=== PATIENT | male | born 1960 | race Caucasian/White ===

== ENCOUNTER 2024-09-04 16:09 | Emergency (ER) | payer OTHER, SELFPAY ==
[2024-09-04 16:23] VITALS: BP 158/78; PULSE 75; TEMP 36.8; O2SAT 96; BMI 30.4
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
[2024-09-04] MEDS: HYDROCODONE/ACET 5-325 MG TABLET 1 TAB PO (18:21)
[2024-09-04] MEDS: METHOCARBAMOL 500 MG TABLET PO (18:21)
== END 2024-09-04 18:30 | disposition home or self-care (01) ==
PROVIDERS: Emergency Provider Student in an Organized Health Care Education/Training Program; PCP Nurse Practitioner Family
DX: S13.4XXA Sprain of ligaments of cervical spine, initial encounter (principal); V49.59XA Passenger injured in collision with other motor vehicles in traffic accident, initial encounter
CPT/HCPCS: 70450; 72125; 99284

== ENCOUNTER 2024-12-29 17:13 | Observation (INO) | payer OTHER, SELFPAY ==
[2024-12-29] VITALS (18 sets, daily range): BP systolic 109–146; BP diastolic 54–74; PULSE 70–106; TEMP 36.8–37.1; O2SAT 92–97; BMI 29.6; BMI 32.0
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
--- NOTE | 2024-12-29 17:32 | XR_ITS ---
[place] [address] Patient Name: BISHNU ROLON MRN: [id number] date: 1960 Sex: M Assigned Patient Location: ER Current Patient Location: ER Accession/Order Number: [id number] Exam Date: 12/29/2024 17:56 Report Date: 12/29/2024 17:56 At the request of: ZEYAD DE LA TORRE MD Procedure: XR chest 1V Plain film chest Single view HISTORY: Shortness of breath COMPARISON: None FINDINGS: SUPPORT DEVICES: None POSTSURGICAL CHANGES: None HEART: Within normal limits PULMONARY KORIN: Within normal limits MEDIASTINUM: Unremarkable LUNGS AND PLEURA: No acute lung process, pleural effusion or pneumothorax identified. BONY STRUCTURES: Intact ADDITIONAL FINDINGS None XR/XR chest 1V IMPRESSION: No acute process. Impression dictated by: Madhav Belcher M.D. 12/29/2024 5:56 PM Dictation Location: [place] [address] Electronically authenticated by: [id number] Y Date: 12/29/2024 17:56
--- NOTE | 2024-12-29 17:32 | ECG_ITS ---
The [facility] Test Date: 2024-12-29 Pat Name: BISHNU ROLON Department: Room: - Gender: Male Online Marketing Manager: : 1960 Requested By: 1030 Order Number: [id number] Reading MD: ÓSCAR ALMEIDA M.D. Measurements Intervals [place] Rate: 103 P: 45 MA: 134 QRS: -48 QRSD: 88 T: 1 QT: 330 QTc: 389 Interpretive Statements 1120 Sinus tachycardia 1570 with occasional ventricular premature complexes 2630 Left anterior fascicular block 4068 Nonspecific Twave abnormality 5222 Moderate voltage criteria for LVH, may be normal variant 8003 Consistent with pulmonary disease 8102 Low QRS voltage in chest leads 9150 abnormal ECG No previous ECG available for comparison Electronically Signed On 12-29-2024 18:11:07 EDT by ÓSCAR ALMEIDA M.D.
--- NOTE | 2024-12-29 17:34 | ED.GENADUL1 ---
HPI HPI - General Adult General Chief complaint: Shortness of Breath/Dyspnea Stated complaint: Shortness of Breath Time Seen by Provider: 12/29/24 17:17 Mode of arrival: walk-in History of Present Illness HPI narrative: 64-year-old male presents for heaviness on his shoulders and feeling short of breath. It started about 2 hours ago. This morning he was working outside for about 3 hours helping his neighbor build a deck. 2 hours ago's when the symptoms started and he felt some cramping in his bilateral chest. No cough or fever. He has never had the symptoms before and was concerned so he came in. Related Data Home Medications ?Medication ?Instructions ?Recorded ?Confirmed allopurinol 300 mg tablet mg 12/29/24 lisinopril 40 mg tablet mg 12/29/24 Allergies Allergy/AdvReac Type Severity Reaction Status Date / Time No Known Drug Allergies Allergy Verified 12/29/24 17:17 Opioid HPI Opioid Management Most Recent Opioid Data: Last Pain Scale 8 09/04/24, 18:27 Review of Systems ROS Narrative A ten point review of systems is negative except as noted above. PFSH PFSH Social History Little interest or pleasure in doing things: not at all Feeling down, depressed, or hopeless: not at all Exam Narrative Exam Narrative: Nurses note and vital signs reviewed and patient is not hypoxic. General: The patient appears well and in no apparent distress. Patient is resting comfortably on cart. Skin: Warm, dry, no pallor noted. There is no rash noted. Head: Normocephalic, atraumatic Eye: Normal conjunctiva, no drainage Ears, Nose, Mouth, and Throat: oral mucosa is moist. Nares patent. Cardiovascular: Regular Rate and Rhythm Respiratory: Patient is in no distress, no accessory muscle use, lungs are clear to auscultation, no wheezing, rales or rhonchi Back: non-tender GI: Soft and nontender Musculoskeletal: The patient has no evidence of calf tenderness, no pitting edema, symmetrical pulses noted bilaterally Neurological: A&O, normal speech Psychiatric: Cooperative Constitutional Vital Signs, click to edit/add: Last Vital Signs Temp 98.8 F 12/29/24 17:17 Pulse 104 H 12/29/24 17:17 Resp 18 12/29/24 17:17 BP 117/71 12/29/24 17:17 Pulse Ox 94 L 12/29/24 17:38 O2 Del Method Room Air 12/29/24 17:38 Course Vital Signs Vital signs: Vital Signs Temperature 98.8 F 12/29/24 17:17 Pulse Rate 104 H 12/29/24 17:17 Respiratory Rate 18 12/29/24 17:17 Blood Pressure 117/71 12/29/24 17:17 Pulse Oximetry 94 L 12/29/24 17:17 Oxygen Delivery Method Room Air 12/29/24 17:17 Temperature 98.8 F 12/29/24 17:17 Pulse Rate 104 H 12/29/24 17:17 Respiratory Rate 18 12/29/24 17:17 Blood Pressure 117/71 12/29/24 17:17 Pulse Oximetry 94 L 12/29/24 17:38 Oxygen Delivery Method Room Air 12/29/24 17:38 Medical Decision Making MDM Narrative Medical decision making narrative: Initial troponin is negative. Repeat troponin is pending and the patient is signed out to Dr. Interiano at change of shift. Differential Diagnosis Differential Diagnosis: STEMI, NSTEMI, pneumothorax, atypical chest Lab Data Lab results reviewed: Yes I reviewed the patient's lab results Labs: Lab Results 12/29/24 Range/Units 17:33 WBC 14.8 H (4.0-11.0) 10^3/uL RBC 4.40 L (4.70-6.10) 10^6/uL Hgb 12.7 L (14.0-18.0) g/dL Hct 37.9 L (42.0-54.0) % MCV 86.1 (80.0-94.0) fL MCH 28.9 (25.9-34.0) pg MCHC 33.5 (29.9-35.2) g/dL RDW 13.6 (11.0-15.0) % Plt Count 272 (150-450) 10^3/uL MPV 10.9 (9.5-13.5) fL Neut % (Auto) 76.2 H (43.0-75.0) % Lymph % (Auto) 16.1 L (20.5-60.0) % [place] % (Auto) 6.2 (1.7-12.0) % Eos % (Auto) 0.7 L (0.9-7.0) % Baso % (Auto) 0.3 (0.2-2.0) % Neut # (Auto) 11.3 H (1.4-6.5) 10^3/uL Lymph # (Auto) 2.4 (1.2-3.8) 10^3/uL [place] # (Auto) 0.9 H (0.3-0.8) 10^3/uL Eos # (Auto) 0.1 (0.0-0.7) 10^3/uL Baso # (Auto) 0.0 (0.0-0.1) 10^3/uL Abs Immat Gran (auto) 0.07 H (0.00-0.03) 10^3/uL Imm/Tot Granulo (auto) 0.5 (0.0-0.5) % Sodium 142 (136-145) mmol/L Potassium 3.7 (3.5-5.1) mmol/L Chloride 104 (98-107) mmol/L Carbon Dioxide 26.1 (21.0-32.0) mmol/L Anion Gap 15.6 BUN 15.0 (7.0-18.0) mg/dL Creatinine 1.46 H (0.70-1.30) mg/dL Est GFR ( Amer) 59 L (>=60 mL/min/1.73m^2) Est GFR (Non-Af Amer) 49 L (>=60 mL/min/1.73m^2) BUN/Creatinine Ratio 10.3 Glucose 149 H (74-106) mg/dL Calcium 9.0 (8.5-10.1) mg/dL Troponin I High Sens 6.1 (4.0-76.1) pg/mL Imaging Data Chest x-ray: Radiologist's impression: ITS Impressions Chest X-Ray 12/29/24 17:32 IMPRESSION: No acute process. Impression dictated by: Madhav Belcher M.D. 12/29/2024 5:56 PM Dictation Location: [facility] Electronically authenticated by: [id number] Y Date: 12/29/2024 17:56 ECG Data Attestation: I personally reviewed and interpreted this ECG as follows: (EKG on my interpretation shows sinus rhythm with rate of 103 and 2 PVCs) Discharge Plan Discharge Patient Disposition: Still a Patient
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
[2024-12-29 17:50] LABS: Basophils Percent Auto 0.3 % (0.2-2.0); Eosinophils Absolute Auto 0.1 10^3/uL (0.0-0.7); Eosinophils Percent Auto 0.7 % (0.9-7.0); Hematocrit 37.9 % (42.0-54.0); Hemoglobin 12.7 g/dL (14.0-18.0); Immature Granulocytes Abs Auto 0.07 10^3/uL (0.00-0.03); Immature Granulocytes Pct Auto 0.5 % (0.0-0.5); Lymphocytes Absolute Auto 2.4 10^3/uL (1.2-3.8); Lymphocytes Percent Auto 16.1 % (20.5-60.0); Mean Corpuscular HGB Conc 33.5 g/dL (29.9-35.2); Mean Corpuscular Hemoglobin 28.9 pg (25.9-34.0); Mean Corpuscular Volume 86.1 fL (80.0-94.0); Mean Platelet Volume 10.9 fL (9.5-13.5); Monocytes Absolute Auto 0.9 10^3/uL (0.3-0.8); Monocytes Percent Auto 6.2 % (1.7-12.0); Neutrophils Absolute Auto 11.3 10^3/uL (1.4-6.5); Neutrophils Percent Auto 76.2 % (43.0-75.0); Platelet Count 272 10^3/uL (150-450); Red Cell Distribution Width 13.6 % (11.0-15.0); White Blood Count 14.8 10^3/uL (4.0-11.0)
[2024-12-29 18:14] LABS: Anion Gap 15.6; BUN Creatinine Ratio 10.3; Carbon Dioxide 26.1 mmol/L (21.0-32.0); Chloride 104 mmol/L (98-107); Estimated GFR (African America 59 (>=60 mL/min/1.73m^2); Estimated GFR (Non-African Ame 49 (>=60 mL/min/1.73m^2); Glucose 149 mg/dL (74-106); Potassium 3.7 mmol/L (3.5-5.1); Sodium 142 mmol/L (136-145); Troponin I High Sensitivity 6.1 pg/mL (4.0-76.1)
[2024-12-29 18:55] LABS: Bilirubin Urine NEGATIVE (NEGATIVE); Blood Urine SMALL (NEGATIVE); Glucose Urine UA NEGATIVE (NEGATIVE); Ketones Urine TRACE mg/dL (NEGATIVE); Leukocyte Esterase Urine LARGE (NEGATIVE); Nitrite Urine POSITIVE (NEGATIVE); Protein Urine 100 mg/dL (NEG/TRACE); Urobilinogen Urine 0.2 EU/dL (0.2-1.0)
[2024-12-29 19:05] LABS: Troponin I High Sensitivity 5.8 pg/mL (4.0-76.1)
[2024-12-29 19:10] LABS: Bacteria Urine LARGE #/HPF (NONE SEEN); Clarity Urine SLIGHTLY CLOUDY (CLEAR); Color Urine DK YELLOW (YELLOW); WBC Urine 75-100 #/HPF (NONE SEEN)
[2024-12-29 19:11] LABS: Crystals Seen? None Seen #/HPF (None Seen); Mucus Urine TRACE (NONE SEEN); Squamous Epithelial Cell Urine RARE #/LPF (NONE/RARE)
[2024-12-29 19:12] LABS: Cast Seen? SEEN #/LPF (NONE SEEN); Hyaline Casts Urine FEW; Urine Culture Indicated YES-FRMC
--- NOTE | 2024-12-29 19:12 | ED_ITS ---
HPI - SOB/Dyspnea General Chief Complaint: Shortness of Breath/Dyspnea Stated Complaint: Shortness of Breath Time Seen by Provider: 12/29/24 17:17 Mode of arrival: walk-in History of Present Illness HPI Narrative: This 64-year-old male with signed out to me at shift change pending repeat troponin and reevaluation. The patient was seen and evaluated. He is resting comfortably. He has no complaints at this time. He states that earlier today after working with his neighbor to help him build a deck he was walking back to his house and felt pain across his shoulders and felt like he was carrying 250 pound buckets of water. He states that he felt weak and like everything was heavy. He has been having intermittent muscle cramps since that time. He denies any daniel chest pain or shortness of breath. He has never smoked cigarettes. He does not have a history of any heart disease. He does take medication for blood pressure. He states that he drinks plenty of water throughout the day and drink 3-4 bottles of water today while working outside. Approximately 8 days ago he did have some dysuria and has been increasing his water intake since then. He does not any have any abdominal pain or flank pain. He has not had any fevers or chills. I did review his EKG and labs. His white count is elevated at 14.8 with a stable hemoglobin.. Electrolytes are normal with an elevated creatinine at 1.46.. Urine is positive for nitrites and 75-100 white blood cells per high-power field. He will be given IV fluids and IV Rocephin pending culture of his urine. His repeat troponin is normal. D-dimer is normal. Lactic acid is normal. 2 sets of blood cultures are pending. The patient does not show any signs of toxicity or sepsis at this time but due to the elevated white count, generalized weakness and urinary tract infection the blood cultures and lactic acid were ordered. He was given IV Cipro in addition to the IV Rocephin pending culture of his urine. He is otherwise stable. He denies any abdominal pain or back pain. The case was discussed with the hospitalist and he is excepted for admission MedSurg, observation status Related Data Home Medications ?Medication ?Instructions ?Recorded ?Confirmed allopurinol 300 mg tablet mg 12/29/24 lisinopril 40 mg tablet mg 12/29/24 Allergies Allergy/AdvReac Type Severity Reaction Status Date / Time No Known Drug Allergies Allergy Verified 12/29/24 17:17 PFSH PFS Social History Little interest or pleasure in doing things: not at all Feeling down, depressed, or hopeless: not at all Exam Constitutional Vital Signs, click to edit/add: Last Vital Signs Temp 98.8 F 12/29/24 17:17 Pulse 87 12/29/24 18:50 Resp 16 12/29/24 18:50 BP 112/61 12/29/24 18:45 Pulse Ox 94 L 12/29/24 18:50 O2 Del Method Room Air 12/29/24 17:38 Course Vital Signs Vital signs: Vital Signs Temperature 98.8 F 12/29/24 17:17 Pulse Rate 104 H 12/29/24 17:17 Respiratory Rate 18 12/29/24 17:17 Blood Pressure 117/71 12/29/24 17:17 Pulse Oximetry 94 L 12/29/24 17:17 Oxygen Delivery Method Room Air 12/29/24 17:17 Temperature 98.8 F 12/29/24 17:17 Pulse Rate 87 12/29/24 18:50 Respiratory Rate 16 12/29/24 18:50 Blood Pressure 112/61 12/29/24 18:45 Pulse Oximetry 94 L 12/29/24 18:50 Oxygen Delivery Method Room Air 12/29/24 17:38 MDM - SOB/Dyspnea Lab Data Labs: Lab Results 12/29/24 12/29/24 12/29/24 Range/Units 17:33 17:35 18:30 WBC 14.8 H (4.0-11.0) 10^3/uL RBC 4.40 L (4.70-6.10) 10^6/uL Hgb 12.7 L (14.0-18.0) g/dL Hct 37.9 L (42.0-54.0) % MCV 86.1 (80.0-94.0) fL MCH 28.9 (25.9-34.0) pg MCHC 33.5 (29.9-35.2) g/dL RDW 13.6 (11.0-15.0) % Plt Count 272 (150-450) 10^3/uL MPV 10.9 (9.5-13.5) fL Neut % (Auto) 76.2 H (43.0-75.0) % Lymph % (Auto) 16.1 L (20.5-60.0) % Atkinson % (Auto) 6.2 (1.7-12.0) % Eos % (Auto) 0.7 L (0.9-7.0) % Baso % (Auto) 0.3 (0.2-2.0) % Neut # (Auto) 11.3 H (1.4-6.5) 10^3/uL Lymph # (Auto) 2.4 (1.2-3.8) 10^3/uL Atkinson # (Auto) 0.9 H (0.3-0.8) 10^3/uL Eos # (Auto) 0.1 (0.0-0.7) 10^3/uL Baso # (Auto) 0.0 (0.0-0.1) 10^3/uL Abs Immat Gran (auto) 0.07 H (0.00-0.03) 10^3/uL Imm/Tot Granulo (auto) 0.5 (0.0-0.5) % D-Dimer 0.42 (<=0.59) mg/L FEU Sodium 142 (136-145) mmol/L Potassium 3.7 (3.5-5.1) mmol/L Chloride 104 (98-107) mmol/L Carbon Dioxide 26.1 (21.0-32.0) mmol/L Anion Gap 15.6 BUN 15.0 (7.0-18.0) mg/dL Creatinine 1.46 H (0.70-1.30) mg/dL Est GFR ( Amer) 59 L (>=60 mL/min/1.73m^2) Est GFR (Non-Af Amer) 49 L (>=60 mL/min/1.73m^2) BUN/Creatinine Ratio 10.3 Glucose 149 H (74-106) mg/dL Lactate (0.4-2.0) mmol/L Calcium 9.0 (8.5-10.1) mg/dL Troponin I High Sens 6.1 (4.0-76.1) pg/mL Urine Color Dk yellow (YELLOW) Urine Clarity Slightly cloudy A (CLEAR) Urine pH 6.0 (5.0-9.0) Ur Specific [place] 1.020 (1.005-1.025) Urine Protein 100 A (NEG/TRACE) mg/dL Urine Glucose (UA) Negative (NEGATIVE) mg/dL Urine Ketones Trace A (NEGATIVE) mg/dL Urine Occult Blood Small A (NEGATIVE) Urine Nitrite Positive A (NEGATIVE) Urine Bilirubin Negative (NEGATIVE) Urine Urobilinogen 0.2 (0.2-1.0) EU/dL Ur Leukocyte Esterase Large A (NEGATIVE) Urine RBC 2-5 A (0-2) #/HPF Urine WBC 75-100 A (NONE SEEN) #/HPF Ur Squamous Epith Cells Rare (NONE/RARE) #/LPF Urine Crystals None seen (None Seen) #/HPF Urine Bacteria Large A (NONE SEEN) #/HPF Urine Casts Seen A (NONE SEEN) #/LPF Hyaline Casts Few Urine Mucus Trace A (NONE SEEN) Ur Culture Indicated? [place] [place] 12/29/24 Range/Units 18:42 19:25 WBC (4.0-11.0) 10^3/uL RBC (4.70-6.10) 10^6/uL Hgb (14.0-18.0) g/dL Hct (42.0-54.0) % MCV (80.0-94.0) fL MCH (25.9-34.0) pg MCHC (29.9-35.2) g/dL RDW (11.0-15.0) % Plt Count (150-450) 10^3/uL MPV (9.5-13.5) fL Neut % (Auto) (43.0-75.0) % Lymph % (Auto) (20.5-60.0) % Atkinson % (Auto) (1.7-12.0) % Eos % (Auto) (0.9-7.0) % Baso % (Auto) (0.2-2.0) % Neut # (Auto) (1.4-6.5) 10^3/uL Lymph # (Auto) (1.2-3.8) 10^3/uL Atkinson # (Auto) (0.3-0.8) 10^3/uL Eos # (Auto) (0.0-0.7) 10^3/uL Baso # (Auto) (0.0-0.1) 10^3/uL Abs Immat Gran (auto) (0.00-0.03) 10^3/uL Imm/Tot Granulo (auto) (0.0-0.5) % D-Dimer (<=0.59) mg/L FEU Sodium (136-145) mmol/L Potassium (3.5-5.1) mmol/L Chloride (98-107) mmol/L Carbon Dioxide (21.0-32.0) mmol/L Anion Gap BUN (7.0-18.0) mg/dL Creatinine (0.70-1.30) mg/dL Est GFR ( Amer) (>=60 mL/min/1.73m^2) Est GFR (Non-Af Amer) (>=60 mL/min/1.73m^2) BUN/Creatinine Ratio Glucose (74-106) mg/dL Lactate 0.9 (0.4-2.0) mmol/L Calcium (8.5-10.1) mg/dL Troponin I High Sens 5.8 (4.0-76.1) pg/mL Urine Color (YELLOW) Urine Clarity (CLEAR) Urine pH (5.0-9.0) Ur Specific [place] (1.005-1.025) Urine Protein (NEG/TRACE) mg/dL Urine Glucose (UA) (NEGATIVE) mg/dL Urine Ketones (NEGATIVE) mg/dL Urine Occult Blood (NEGATIVE) Urine Nitrite (NEGATIVE) Urine Bilirubin (NEGATIVE) Urine Urobilinogen (0.2-1.0) EU/dL Ur Leukocyte Esterase (NEGATIVE) Urine RBC (0-2) #/HPF Urine WBC (NONE SEEN) #/HPF Ur Squamous Epith Cells (NONE/RARE) #/LPF Urine Crystals (None Seen) #/HPF Urine Bacteria (NONE SEEN) #/HPF Urine Casts (NONE SEEN) #/LPF Hyaline Casts Urine Mucus (NONE SEEN) Ur Culture Indicated? Discharge Plan Discharge Chief Complaint: Shortness of Breath/Dyspnea Clinical Impression: Chest pain, Acute UTI (urinary tract infection), Acute kidney injury Patient Disposition: Admitted as Observation Time of Disposition Decision: 20:02 Condition: Good
[2024-12-29 19:20] LABS: D Dimer 0.42 mg/L FEU (<=0.59)
[2024-12-29] MEDS: 0.9 % SODIUM CHLORIDE 1,000 ML 1000 ML IV (19:39)
[2024-12-29] MEDS: CEFTRIAXONE 1,000 MG in 0.9 % SODIUM CHLORIDE 50 ML 100 MG IV (19:39)
[2024-12-29 19:47] LABS: Lactate/Lactic Acid 0.9 mmol/L (0.4-2.0)
[2024-12-29] MEDS: CIPROFLOXACIN IN 5 % DEXTROSE 400 MG/200 ML PREMIX 200 MG IV (20:09)
[2024-12-29 21:26] LABS: C Reactive Protein 6.46 mg/dL (<=0.50)
--- OUTSIDE RECORDS SUMMARY | 2024-12-29 21:34 | XMS_ITS | CCD ---
Author Organization 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 Name Role Phone ZEYAD DE LA TORRE Admitting Unavailable ZEYAD DE LA TORRE Attending Unavailable CAITLIN ., SUMAN Consulting Unavailable JEEVAN SALAS Consulting Unavailable PAY ., DR PAUL Consulting Unavailable PAY ., DR PAUL Admitting Unavailable PAY ., DR PAUL Attending Unavailable DONNA DOMINGUEZ Admitting Unavailable DONNA DOMINGUEZ Attending Unavailable [facility] Primary Care Unavailable DONNA DOMINGUEZ [...] 09-18-2022 Chronic Other aftercare (1 source) 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 Dayanara Mckeon Basophils/100 WBC (Bld) 0.2 % Normal 0.2-2.0 [facility] Comment on above: Performed By: #### C BC #### [facility] [address] [place] [address] Dr. Dayanara Mckeon EO # 0.0 103/ul Normal 0.0-0.7 [facility] Comment on above: Performed By: #### C BC #### [facility] [address] [place] [address] Dr. Dayanara Mckeon Eosinophils/100 WBC (Bld) 0.2 % Critically low 0.9-7.0 [facility] Comment on above: Performed By: #### C BC #### [facility] [address] [place] [address] Dr. Dayanara Mckeon Erythrocyte distribution width (RBC) [Ratio] 13.2 % Normal 11.0-15.0 [facility] Comment on above: Performed By: #### C BC #### [facility] [address] [place] [address] Dr. Dayanara Mckeon Hematocrit (Bld) [Volume fraction] 42.9 % Normal 42.0-54.0 [facility] Comment on above: Performed By: #### C BC #### [facility] [address] [place] [address] Dr. Dayanara Mckeon Hemoglobin (Bld) [Mass/Vol] 14.8 g/dL Normal 14.0-18.0 [facility] Comment on above: Performed By: #### C BC #### [facility] [address] [place] [address] Dr. Dayanara Mckeon IG # 0.03 10e3/ul Normal 0.00-0.03 [facility] Comment on above: Performed By: #### C BC #### [facility] [address] [place] [address] Dr. Dayanara Mckeon IG % 0.3 % Normal 0.0-0.5 [facility] Comment on above: Performed By: #### C BC #### [facility] [address] [place] [address] Dr. Dayanara Mckeon LYMPH # 1.0 103/ul Critically low 1.2-3.8 [facility] Comment on above: Performed By: #### C BC #### [facility] [address] [place] [address] Dr. Dayanara Mckeon Lymphocytes/100 WBC (Bld) 10.4 % Critically low 20.5-60.0 [facility] Comment on above: Performed By: #### C BC #### [facility] [address] [place] [address] Dr. Dayanara Mckeon MANUAL DIFF REQ NO Normal [facility] Comment on above: Performed By: #### C BC #### [facility] [address] [place] [address] Dr. Dayanara Mckeon MCH (RBC) [Entitic mass] 29.7 pg Normal 25.9-34.0 [facility] Comment on above: Performed By: #### C BC #### [facility] [address] [place] [address] Dr. Dayanara Mckeon MCHC (RBC) [Mass/Vol] 34.5 g/dL Normal 29.9-35.2 [facility] Comment on above: Performed By: #### C BC #### [facility] [address] [place] [address] Dr. Dayanara Mckeon MCV (RBC) [Entitic vol] 86.0 fL Normal 80.0-94.0 [facility] Comment on above: Performed By: #### C BC #### [facility] [address] [place] [address] Dr. Dayanara Mckeon MONO # 0.2 103/ul Critically low 0.3-0.8 [facility] Comment on above: Performed By: #### C BC #### [facility] [address] [place] [address] Dr. Dayanara Mckeon Monocytes/100 WBC (Bld) 2.4 % Normal 1.7-12.0 [facility] Comment on above: Performed By: #### C BC #### [facility] [address] [place] [address] Dr. Dayanara Mckeon NEUT # 8.3 103/ul Critically high 1.4-6.5 [facility] Comment on above: Performed By: #### C BC #### [facility] [address] [place] [address] Dr. Dayanara Mckeon Neutrophils/100 WBC (Bld) 86.5 % Critically high 43.0-75.0 [facility] Comment on above: Performed By: #### C BC #### [facility] [address] [place] [address] Dr. Dayanara Mckeon Platelet mean volume (Bld) [Entitic vol] 11.0 fL Normal 9.5-13.5 [facility] Comment on above: Performed By: #### C BC #### [facility] [address] [place] [address] Dr. Dayanara Mckeon PLT 237 103/ul Normal 150-450 [facility] Comment on above: Performed By: #### C BC #### [facility] [address] [place] [address] Dr. Dayanara Mckeon RBC 4.99 106/ul Normal 4.70-6.10 [facility] Comment on above: Performed By: #### C BC #### [facility] [address] [place] [address] Dr. Dayanara Mckeon WBC 9.6 103/ul Normal 4.0-11.0 [facility] Comment on above: Performed By: #### C BC #### [facility] [address] [address] [address] HEAD WO CONon [...] CYNTHIA RESENDIZ Date: 2022-09-14 22:36 Normal [facility] PROF CHEM 8 (BAS METB)on Anion gap [Moles/Vol] 11.3 mmol/L Normal [facility] Comment on above: Performed By: #### B MP #### [facility] [address] [address] [address] Dayanara Mckeon Calcium [Mass/Vol] 9.0 mg/dL Normal 8.5-10.1 [facility] Comment on above: Performed By: #### B MP #### [facility] [address] [address] [address] Dayanara Mckeon Chloride [Moles/Vol] 103 mmol/L Normal 98-107 [facility] Comment on above: Performed By: #### B MP #### [facility] [address] [address] [address] Dayanara Mckeon CO2 [Moles/Vol] 28.8 mmol/L Normal 21.0-32.0 [facility] Comment on above: Performed By: #### B MP #### [facility] [address] [address] [address] Dayanara Mckeon Creatinine [Mass/Vol] 0.79 mg/dL Normal 0.70-1.30 [facility] Comment on above: Performed By: #### B MP #### [facility] [address] [address] [address] Dayanara Mckeon EGFR-AF INDONESIAN >60 Normal >=60 [facility] Comment on above: Performed By: #### B MP #### [facility] [address] [place] [address] Dr. Dayanara Mckeon EGFR-NON AF INDONESIAN >60 Normal >=60 [facility] Comment on above: Performed By: #### B MP #### [facility] [address] [place] [address] Dr. Dayanara Mckeon Glucose [Mass/Vol] 129 mg/dL Critically high 74-106 [facility] Comment on above: Performed By: #### B MP #### [facility] [address] [place] [address] Dr. Dayanara Mckeon Potassium [Moles/Vol] 4.1 mmol/L Normal 3.5-5.1 [facility] Comment on above: Performed By: #### B MP #### [facility] [address] [address] [address] Dayanara Mckeon Sodium [Moles/Vol] 139 mmol/L Normal 136-145 [facility] Comment on above: Performed By: #### B MP #### [facility] [address] [address] [address] Dayanara Mckeon Urea nitrogen [Mass/Vol] 12.0 mg/dL Normal 7.0-18.0 [facility] Comment on above: Performed By: #### B MP #### [facility] [address] [place] [address] Dr. Dayanara Mckeon Urea nitrogen/Creatinin e [Mass ratio] 15.2 mg/mg Normal [facility] Comment on above: Performed By: #### B MP #### [facility] [address] [address] [address] Dayanara Mckeon Covid-19 PCR ([facility])on SARS-CoV-2 (COVID-19) RNA COLTON+probe Ql (Unsp spec) Not detected Normal NOT DETECTED [facility] Comment on above: Result Comment: When [...] for this test is supported by the [place] of Health and Human Service's declaration that [...] used). Performed By: #### C VDTBH #### [facility] [address] [place] [address] Dr. Dayanara Mckeon INFLUENZA A AND B AGon 07-02 [facility] SEE BELOW Normal [facility] Comment on above: Result Comment: Nega tive for Flu A protein angiten. Infection due to Flu A cannot be ruled out. Flu A angiten in the sample may be below the detection limit of the test. Performed By: #### I NFLUAB #### [facility] [address] [place] [address] Dr. Dayanara Mckeon INFLUBNEG SEE BELOW Normal [facility] Comment on above: Result Comment: Nega tive for Flu B protein antigen. Infection due to Flu B cannot be ruled out. Flu B antigen in the sample may be below the detection limit of the test. Performed By: #### I NFLUAB #### [facility] [address] [address] [address] Dayanara Mckeon INFLUENZA A AG Negative Normal NEGATIVE SEE COMMENT [facility] Comment on above: Performed By: #### I NFLUAB #### [facility] [address] [address] [address] Dayanara Mckeon INFLUENZA B AG Negative Normal NEGATIVE SEE COMMENT [facility] Comment on above: Performed By: #### I NFLUAB #### [facility] [address] [address] [address] Dayanara Mckeon INTERNAL CONTROLS Within Normal Limits Normal Wi thin Normal Limits [facility] Comment on above: Performed By: #### I NFLUAB #### [facility] [address] [address] [address] Dayanara Mckeon XR KNEE LT 4V [...] JEEVAN SALAS Date: 2021-10-16 18:42 Normal [facility] Encounters Encounter Date Encounter Type Care Provider Facility Start: 09-29-2024 End: 09-29-2024 ambulatory GLADYS hector Start: 09-14-2022 End: 09-15-2022 ambulatory DONNA DOMINGUEZ Facility:[facility] Start: 07-02-2022 End: 07-02-[address] BEVERLY Deng Facility:[facility] Start: 10-16-2021 End: 10-16-2021 ambulatory ZEYAD DE LA TORRE Facility:[facility] Payers Date Payer Category Payer Unknown [id number] 2.16.84 [id number] 1960 Unknown [id number] 2.16.84 [id number] 1961 Unknown [id number] 2.16.84 [id number] 1961 Unknown [id number] [id number]. [id number] 1961 Unknown [id number] 2.16. [id number] 1959 Unknown [id number] 1959 Unknown [id number] Summary Purpose Family History No Family History Records FoundNo Family History Records Found Advance Directives No Advanced Directives Records FoundNo Advanced Directives Records Found Additional Source Comments (unrecognized sect ion and content) No Status Records FoundNo Status Records Found INFORMATION SOURCE (unrecogn ized section and content) DATE CREATED AUTHOR 09/20/2022 [facility] DATE CREATED AUTHOR 'S JAK FINNEY 10/01/2024 [facility] FOR RECORDS PERTAINING TO PATIENTS WHO ARE [...] BE BASED ON THE PRIMARY CLINICAL RECORDS. [facility] [employer] [facility]. provides no warranty or guarantee of the accuracy or completeness of information in this document.
[2024-12-29] MEDS: 0.9 % SODIUM CHLORIDE 1,000 ML 100 ML IV (22:29)
[2024-12-30] MEDS: TEMAZEPAM 15 MG CAPSULE PO
[2024-12-30 04:17] VITALS: BP 127/74; PULSE 58; TEMP 36.6; O2SAT 93
[2024-12-30 05:35] LABS: Basophils Absolute Auto 0.1 10^3/uL (0.0-0.1); Basophils Percent Auto 0.5 % (0.2-2.0); Eosinophils Absolute Auto 0.3 10^3/uL (0.0-0.7); Eosinophils Percent Auto 2.5 % (0.9-7.0); Hemoglobin 11.7 g/dL (14.0-18.0); Immature Granulocytes Abs Auto 0.05 10^3/uL (0.00-0.03); Immature Granulocytes Pct Auto 0.5 % (0.0-0.5); Lymphocytes Absolute Auto 2.1 10^3/uL (1.2-3.8); Lymphocytes Percent Auto 19.8 % (20.5-60.0); Mean Corpuscular HGB Conc 33.4 g/dL (29.9-35.2); Mean Corpuscular Hemoglobin 29.5 pg (25.9-34.0); Mean Corpuscular Volume 88.2 fL (80.0-94.0); Mean Platelet Volume 10.6 fL (9.5-13.5); Monocytes Percent Auto 9.6 % (1.7-12.0); Neutrophils Absolute Auto 7.1 10^3/uL (1.4-6.5); Neutrophils Percent Auto 67.1 % (43.0-75.0); Platelet Count 227 10^3/uL (150-450); Red Blood Count 3.97 10^6/uL (4.70-6.10); Red Cell Distribution Width 13.7 % (11.0-15.0); White Blood Count 10.5 10^3/uL (4.0-11.0)
[2024-12-30 05:56] LABS: Alanine Aminotransferase 19 U/L (16-63); Albumin Globulin Ratio 0.8; Albumin Level 2.7 g/dL (3.4-5.0); Alkaline Phosphatase 76 U/L (46-116); Anion Gap 12.2; Aspartate Amino Transferase 12 U/L (15-37); BUN Creatinine Ratio 13.6; Bilirubin Total 0.7 mg/dL (0.2-1.0); Calcium 8.4 mg/dL (8.5-10.1); Carbon Dioxide 27.3 mmol/L (21.0-32.0); Chloride 106 mmol/L (98-107); Estimated GFR (African America >60 (>=60 mL/min/1.73m^2); Estimated GFR (Non-African Ame >60 (>=60 mL/min/1.73m^2); Globulin 3.6 g/dL; Glucose 115 mg/dL (74-106); Magnesium 2.1 mg/dL (1.8-2.4); Potassium 3.5 mmol/L (3.5-5.1); Sodium 142 mmol/L (136-145); Total Protein 6.3 g/dL (6.4-8.2)
--- NOTE | 2024-12-30 06:38 | P.HP_ITS ---
HPI H&P: HPI History of Present Illness Chief complaint: Shortness of Breath, weakness, uti Narrative: Patient who presented emergency with increasing weakness and back pain, found to have acute UTI likely pyelonephritis with leukocytosis and acute kidney injury stage I I saw patient up on the medical surgical floor after resting overnight and IV fluid hydration and IV antibiotics he feels much improved today, denies fever or chills denies shortness of breath or chest pain Opioid HPI Opioid Management Most Recent Pain and Opioid Data: Last Pain Scale 8 09/04/24, 18:27 Last Pain Assessment 12/29/24, 22:20 Last ORT Total Score 0 12/29/24, 21:33 Last ORT Risk Category Low Risk 12/29/24, 21:33 Review of Systems ROS Status of ROS 10 or more systems reviewed and unremark able except as noted in history and below [facility] Medical History (Updated 12/29/24 @ 21:57 by Carlota Rodríguez RN) Hypertension ?I10 - Essential (primary) hypertension (ICD-10) Social History (Updated 12/29/24 @ 21:57 by Carlota Rodríguez RN) Within the past year, how often did you have a drink containing alcohol: never Within the past year, how often did you have six or more drinks on one occasion: never Score interpretation: A score less than 4 is consistent with normal alcohol consumption. Smoking status: Never smoker Second hand tobacco smoke exposure: No Non-prescribed substance use: denies use Known occupational exposures/hazards: No Highest level of school completed/degree received: high school graduate Do you want help with school or training: No Are you now , , , , never or living with a partner: In a typical week, how many times do you talk on the telephone with family, friends, or neighbors: 3 or more times per week Little interest or pleasure in doing things: not at all Feeling down, depressed, or hopeless: not at all Feel stressed/tense/nervous/anxious/difficulty sleeping: not at all Meds Home Medications and Allergies Home Medications ?Medication ?Instructions ?Recorded ?Confirmed ?Type allopurinol 300 mg tablet 150 mg PO .QD 12/29/2412/30 History lisinopril 40 mg tablet 40 mg PO .QD 12/29/24 History ciprofloxacin HCl 500 mg tablet 500 mg PO Q12H #18 tab s 12/30/24 Rx (Cipro) Allergies Allergy/AdvReac Type Severity Reaction Status Date / Time No Known Drug Allergies Allergy Verified 12/29/24 17:17 Exam Constitutional Vital Signs, click to edit/add: Last Vital Signs Temp 97.9 F 12/30/24 04:17 Pulse 58 L 12/30/24 04:17 Resp 18 12/30/24 04:17 BP 127/74 12/30/24 04:17 Pulse Ox 93 L 12/30/24 04:17 O2 Del Method Room Air 12/30/24 04:17 Documenting provider has reviewed patient's vital signs: yes Common normals: no apparent distress Chest Common normals: inspection of chest normal Respiratory Common normals: normal respiratory effort, no retractions and clear to auscultation bilaterally Cardio Common normals: regular rate, regular rhythm and no murmurs GI Common normals: Normal to inspection, nondistended, normoactive bowel sounds present, soft to palpation and no hepatosplenomegaly Back & Pelvis Common normals: no CVA tenderness and thoracic and lumbar spine normal to inspection Neuro Common normals: CN's II-XII intact bilaterally, moves all extremities and no focal motor deficits Results Labs Labs: Short CBC 12/29/24 12/30/24 Range/Units 17:33 05:05 WBC 14.8 H 10.5 (4.0-11.0) 10^3/uL Hgb 12.7 L 11.7 L (14.0-18.0) g/dL Hct 37.9 L 35.0 L (42.0-54.0) % Plt Count 272 227 (150-450) 10^3/uL BMP 12/29/24 12/30/24 17:33 05:05 Sodium 142 142 Potassium 3.7 3.5 Chloride 104 106 Carbon Dioxide 26.1 27.3 BUN 15.0 12.0 Creatinine 1.46 H 0.88 Glucose 149 H 115 H Calcium 9.0 8.4 L Liver Function 12/30/24 Range/Units 05:05 Total Bilirubin 0.7 (0.2-1.0) mg/dL AST 12 L (15-37) U/L ALT 19 (16-63) U/L Alkaline Phosphatase 76 (46-116) U/L Albumin 2.7 L (3.4-5.0) g/dL Urine 12/29/24 Range/Units 18:30 Urine Color Dk yellow (YELLOW) Urine Clarity Slightly cloudy A (CLEAR) Urine pH 6.0 (5.0-9.0) Ur Specific [place] 1.020 (1.005-1.025) Urine Protein 100 A (NEG/TRACE) mg/dL Urine Glucose (UA) Negative (NEGATIVE) mg/dL Assessment and Plan Assessment and Plan (1) Acute kidney injury: (2) Acute UTI (urinary tract infection): (3) Hypertension: Plan Admission findings: Sinus tachycardia, respiratory distress, acute infection noted on urinalysis with leukocytosis and elevated BUN and creatinine consistent with acute kidney injury stage I meeting criteria for sepsis due to UTI. Acute kidney injury baseline creatinine 0.88, creatinine admission 1.46 which is 165.9% above baseline with decreased urine output over the last 6 hours with resultant acute kidney injury stage I Acute UTI and likely pyelonephritis-white blood cell count improved to normal, feels much better, good urine output, at this point we will give 1 more dose of the IV Cipro and then discharge patient home in improving condition. Medications see list. Follow-up with PCP within the next week to follow-up on results of cultures Acute kidney injury stage I-baseline creatinine 0.88, creatinine admission 1.46 which is 165.9% above baseline with decreased urine output over the last 6 hours with resultant acute kidney injury stage I Hypertension-improved, maintain current medications Sinus tachycardia-improved with hydration Respiratory distress likely related to the sinus tachycardia and sepsis as outlined above-improved to baseline Admission status: Patient placed in observation overnight, IV fluids and IV antibiotics, much improved this morning, medically necessary treatment only span 1 midnight, maintain observation status
[2024-12-30 07:40] VITALS: BP 130/78; PULSE 62; O2SAT 93
[2024-12-30] MEDS: LISINOPRIL 20 MG TABLET 40 MG PO (08:17)
[2024-12-30] MEDS: CEFTRIAXONE 1,000 MG in 0.9 % SODIUM CHLORIDE 50 ML 100 MG IV (08:18)
[2024-12-30] MEDS: CIPROFLOXACIN IN 5 % DEXTROSE 400 MG/200 ML PREMIX 200 MG IV (08:19)
--- NOTE | 2024-12-30 08:38 | CM.NOTE ---
Rounds made with Dr. Roberts, pt will discharge to home today and f/u with PCP next week.
--- NOTE | 2024-12-30 09:30 | P.DS_ITS ---
DS: Providers Provider Date of admission: 12/29/24 21:09 Primary care physician: Keli Lawrence NP Consults: 12/30/24 06:40 Consult to Pharmacy Routine Consulting Provider: Reason for consultation: Please Goldsmith me when Med Rec is Updated Has provider been notified: No DS: Diagnosis Discharge Diagnosis (1) Acute kidney injury: (2) Acute UTI (urinary tract infection): (3) Hypertension: Plan Admission findings: Sinus tachycardia, respiratory distress, acute infection noted on urinalysis with leukocytosis and elevated BUN and creatinine consistent with acute kidney injury stage I meeting criteria for sepsis due to UTI. Acute kidney injury baseline creatinine 0.88, creatinine admission 1.46 which is 165.9% above baseline with decreased urine output over the last 6 hours with resultant acute kidney injury stage I Acute UTI and likely pyelonephritis-white blood cell count improved to normal, feels much better, good urine output, at this point we will give 1 more dose of the IV Cipro and then discharge patient home in improving condition. Medications see list. Follow-up with PCP within the next week to follow-up on results of cultures Acute kidney injury stage I-baseline creatinine 0.88, creatinine admission 1.46 which is 165.9% above baseline with decreased urine output over the last 6 hours with resultant acute kidney injury stage I Hypertension-improved, maintain current medications Sinus tachycardia-improved with hydration Respiratory distress likely related to the sinus tachycardia and sepsis as outlined above-improved to baseline Admission status: Patient placed in observation overnight, IV fluids and IV antibiotics, much improved this morning, medically necessary treatment only span 1 midnight, maintain observation status DS: Summary Hospital Course Hospital Course: Patient admitted with back pain, evidence for sepsis being sinus tachycardia, respiratory distress, leukocytosis and no infectious source of likely kidney, given IV hydration overnight feels much improved this morning, the will give 1 more dose of IV Cipro and if eating well and ambulating well and no increase in pain, vital signs remained stable he will be discharged home in improved condition. Medication status. Follow-up with PCP within the next week. Time Spent with Patient Time attestation: Total time spent providing and/or coordinating discharge services: Exam Constitutional Vital Signs, click to edit/add: Last Vital Signs Temp 97.9 F 12/30/24 04:17 Pulse 62 12/30/24 07:40 Resp 14 12/30/24 07:40 BP 130/78 12/30/24 07:40 Pulse Ox 93 L 12/30/24 07:40 O2 Del Method Room Air 12/30/24 07:40 Documenting provider has reviewed patient's vital signs: yes Common normals: no apparent distress Chest Common normals: inspection of chest normal Respiratory Common normals: normal respiratory effort, no retractions and clear to auscultation bilaterally Cardio Common normals: regular rate, regular rhythm and no murmurs GI Common normals: Normal to inspection, nondistended, normoactive bowel sounds present, soft to palpation and no hepatosplenomegaly Back & Pelvis Common normals: no CVA tenderness and thoracic and lumbar spine normal to inspection Neuro Common normals: CN's II-XII intact bilaterally, moves all extremities and no focal motor deficits DS: Data Data Completed and Pending Labs on day of discharge: Labs from last 24 hours 12/30/24 12/29/24 12/29/24 05:05 19:25 18:42 WBC 10.5 RBC 3.97 L Hgb 11.7 L Hct 35.0 L MCV 88.2 MCH 29.5 MCHC 33.4 RDW 13.7 Plt Count 227 MPV 10.6 Neut % (Auto) 67.1 Lymph % (Auto) 19.8 L [place] % (Auto) 9.6 Eos % (Auto) 2.5 Baso % (Auto) 0.5 Neut # (Auto) 7.1 H Lymph # (Auto) 2.1 [place] # (Auto) 1.0 H Eos # (Auto) 0.3 Baso # (Auto) 0.1 Abs Immat Gran (auto) 0.05 H Imm/Tot Granulo (auto) 0.5 D-Dimer Sodium 142 Potassium 3.5 Chloride 106 Carbon Dioxide 27.3 Anion Gap 12.2 BUN 12.0 Creatinine 0.88 Est GFR ( Amer) >60 Est GFR (Non-Af Amer) >60 BUN/Creatinine Ratio 13.6 Glucose 115 H Lactate 0.9 Calcium 8.4 L Magnesium 2.1 Total Bilirubin 0.7 AST 12 L ALT 19 Alkaline Phosphatase 76 Troponin I High Sens 5.8 C-Reactive Protein Total Protein 6.3 L Albumin 2.7 L Globulin 3.6 Albumin/Globulin Ratio 0.8 Urine Color Urine Clarity Urine pH Ur Specific [place] Urine Protein Urine Glucose (UA) Urine Ketones Urine Occult Blood Urine Nitrite Urine Bilirubin Urine Urobilinogen Ur Leukocyte Esterase Urine RBC Urine WBC Ur Squamous Epith Cells Urine Crystals Urine Bacteria Urine Casts Hyaline Casts Urine Mucus Ur Culture Indicated? 12/29/24 12/29/24 12/29/24 18:30 17:35 17:33 WBC 14.8 H RBC 4.40 L Hgb 12.7 L Hct 37.9 L MCV 86.1 MCH 28.9 MCHC 33.5 RDW 13.6 Plt Count 272 MPV 10.9 Neut % (Auto) 76.2 H Lymph % (Auto) 16.1 L [place] % (Auto) 6.2 Eos % (Auto) 0.7 L Baso % (Auto) 0.3 Neut # (Auto) 11.3 H Lymph # (Auto) 2.4 [place] # (Auto) 0.9 H Eos # (Auto) 0.1 Baso # (Auto) 0.0 Abs Immat Gran (auto) 0.07 H Imm/Tot Granulo (auto) 0.5 D-Dimer 0.42 Sodium 142 Potassium 3.7 Chloride 104 Carbon Dioxide 26.1 Anion Gap 15.6 BUN 15.0 Creatinine 1.46 H Est GFR ( Amer) 59 L Est GFR (Non-Af Amer) 49 L BUN/Creatinine Ratio 10.3 Glucose 149 H Lactate Calcium 9.0 Magnesium Total Bilirubin AST ALT Alkaline Phosphatase Troponin I High Sens 6.1 C-Reactive Protein 6.46 H Total Protein Albumin Globulin Albumin/Globulin Ratio Urine Color Dk yellow Urine Clarity Slightly cloudy A Urine pH 6.0 Ur Specific [place] 1.020 Urine Protein 100 A Urine Glucose (UA) Negative Urine Ketones Trace A Urine Occult Blood Small A Urine Nitrite Positive A Urine Bilirubin Negative Urine Urobilinogen 0.2 Ur Leukocyte Esterase Large A Urine RBC 2-5 A Urine WBC 75-100 A Ur Squamous Epith Cells Rare Urine Crystals None seen Urine Bacteria Large A Urine Casts Seen A Hyaline Casts Few Urine Mucus Trace A Ur Culture Indicated? [place] [place] Discharge Disposition: Home, Self-Care Condition: Good Discharge Medications: New ciprofloxacin HCl [Cipro] 500 mg tablet 500 mg PO Q12H Qty: 18 0RF Continued allopurinol 300 mg tablet 150 mg PO .QD lisinopril 40 mg tablet 40 mg PO .QD Print Language: Cuban Patient Instructions: Ciprofloxacin (By mouth), Urinary Tract Infection in Men (GEN) Forms: Portal Instructions Follow Up Appointments: January 08 @ 9:15am [facility] [place] [address] [phone]
--- NOTE | 2025-01-05 14:36 | CM.DCFOLLOWU ---
Person spoke with: patient How are you feeling?well How is your pain?none Did you understand your discharge instructions?yes Do you have any questions about your discharge instructions? no Were you given any prescriptions at discharge?yes Were you able to get your prescriptions filled?yes Do you understand how to take your medications as ordered?yes Do you have any questions about your follow up appointment and do you plan to keep your follow up appointment? no questions, has follow up Saturday Is there anything else that you would like to discuss? no Questions/Comments/Concerns/Other: patient did ask if his blood cultures were back? Case management was able to look in chart and we updated pt that they are negative and he is on right antibiotic for urine.
== END 2024-12-30 10:45 | disposition home or self-care (01) ==
LOC: ER 20:03 → MS 21:32
PROVIDERS: Emergency Medicine; Registered Nurse; Admitting Provider Family Medicine; Emergency Provider Emergency Medicine; PCP Nurse Practitioner Family; Visit Provider Family Medicine
DX: A41.59 Other Gram-negative sepsis (principal); N39.0 Urinary tract infection, site not specified; R07.9 Chest pain, unspecified; N17.9 Acute kidney failure, unspecified; I10 Essential (primary) hypertension; R00.0 Tachycardia, unspecified; R06.03 Acute respiratory distress; R06.02 Shortness of breath
CPT/HCPCS: 36415; 71045; 80048; 80053; 81001; 82948; 83605; 83735; 84484; 85025; 85378; 86140; 87040; 87086; 87088; 87186; 93005; 94667; 94761; 96365; 96366; 96367; 96368; 99285; G0378; J0696; J0744

== ENCOUNTER 2025-02-25 17:56 | Emergency (ER) | payer OTHER, SELFPAY ==
--- OUTSIDE RECORDS SUMMARY | 2025-02-22 03:15 | XMS_ITS ---
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 Name Role Phone Anastasia Milan Primary Care Provider [phone] Allergies No Known Allergies REASON FOR VISIT HTN Medications Medication SIG (Take, Route, Frequency, Duration) Notes Start Date End Date Status Ibuprofen 800 MG 1 tablet with food o r milk as needed Orally every 8 hrs; Duration: 30 days 09/21/2024 Active Allopurinol 300 MG 1/2 tablet Orally On ce a day; Duration: 90 days Active Methocarbamol 750 MG 1 tablet Orally nasim ry 8 hours; Duration: 14 days 09/21/2024 Active Benzonatate 200 MG 1 capsule as needed Orally Three times a day; Duration: 7 days 01/08/2025 Active amLODIPine Besylate 5 MG 1 tablet Orally Once a day; Duration: 45 days 02/22/2025 Active Social History Sex Assigned At : Social History Observation Description Sex Assigned At Male Vital Signs Temperature 97.7 degrees Fahrenheit 02/23/20 25 Weight 217 lbs 02/22/2025 Height 65.00 in 02/22/2025 BMI 36.11 kg/m2 02/22/2025 Blood pressure systolic 157 mm Hg 02/23/20 25 Blood pressure diastolic 82 mm Hg 025 Heart Rate 66 /min 02/22/2025 Respiratory Rate 18 /min 02/22/2025 Oximetry 98 % 02/22/2025 Weight-kg 98.43 kg 02/22/2025 Height-cm 165.10 cm 02/22/2025 David Akins 025 07:12:29 AM EDT > Encounters Encounter Location Date Provider Diagnosis Main [address] [place], [place] [id number] 02/22/2025 Anastasia Milan BMI 36.0-36.9,adult Z68.36 ; Primary hypertension I10 and Obesity, Class II, BMI 35-39.9 E66.812 Assessments Encounter Date Diagnosis (ICD Code) Assessment Notes Treatment Notes Treatment Clinical Notes Section Notes 02/22/2025 BMI 36.0-36.9,adult (ICD-10 - Z68.36) 02/22/2025 Primary hypertension (ICD-10 - I10) D/C'ing Losartan d/t muscle pains/cramping at this time. Added to allergy list along w/ Lisinopril for dry cough RX sent for Amlodipine at this time Pt denies any symptoms, reports home values of 130/s'80's F/U 1 month or PRN 02/22/2025 Obesity, Class II, BMI 35-39.9 (ICD-10 - E66.812) Plan Of Treatment Medication Medication Name Sig Start Date Stop Date Notes Losartan Potassium 50 MG 1 tablet Orally Once a day 2024 amLODIPine Besylate 5 MG 1 tablet Orally Once a day; Duration: 45 days 02/22/2025 Treatment Notes Assessment Notes Primary hypertension D/C'ing Losartan d/t muscle pains/cramping at this time. Added to allergy list along w/ Lisinopril for dry cough RX sent for Amlodipine at this time Pt denies any symptoms, reports home values of 130/s'80's F/U 1 month or PRN Next Appt Details Follow Up: 1 month HTN, Reas on: Provider Name:Anastasia Kayli , 03/22/2025 08:00:00 AM, [address], [id number], Progress Notes * Jose HINESDOB:1959 (64 yo M)Acc No.[id number]:02/22/2025 Medical Note Patient: Monty SOMMERS Jose Provider: Monty Milan :1960 A ge:64 Y S ex:Male Date:02/22/2025 Address:[address] [place] [address] [address], [facility] [place] [id number] Subjective: * Chief Complaints: * H TN * HPI: I nterim History: HYPERTENSION Medication: Losartan 50mg 1QD Pt last seen 01/08/25 for appt Pt reported dry chronic cough w/ Lisinopril so switched to Losartan 50mg (from Lisinopril 40mg) Pt reports he has more joint pain from the med change Home BP readings: Pt reports he has been running 130's/80's Patient denies headache, vision changes, chest pain, shortness of breath/difficulty breathing, decreased exercise tolerance, dizziness/lightheadedness, syncope/near syncope, orthopnea, fatigue, and sweats. * ROS: N egative except mentioned above in the HPI. * Medical History: * Surgical History: L eft and right knee * Hospitalization/Major Diagno stic Procedure: [facility] 12/30/2024 * Family History: F ather: , cirrhosis of liver. M other: , stroke. P aternal Grand Father: . P aternal Grand Mother: . M aternal Grand Father: . M aternal Grand Mother: . B erica: alive. S ister: alive, diagnosed with Hypertension.?1 brother(s) , 2 sister(s) . . * Medications: T akingBenzonatate 200 MG Capsule 1 capsule as needed Orally Three times a day Allopurinol 300 MG Tablet 1/2 tablet Orally Once a day Methocarbamol 750 MG Tablet 1 tablet Orally every 8 hours Ibuprofen 800 MG Tablet 1 tablet with food or milk as needed Orally every 8 hrs Losartan Potassium 50 MG Tablet 1 tablet Orally Once a day Taking Benzonatate 200 MG Capsule 1 capsule as needed Orally Three times a day Taking Allopurinol 300 MG Tablet 1/2 tablet Orally Once a day Taking Methocarbamol 750 MG Tablet 1 tablet Orally every 8 hours Taking Ibuprofen 800 MG Tablet 1 tablet with food or milk as needed Orally every 8 hrs Taking Losartan Potassium 50 MG Tablet 1 tablet Orally Once a day DiscontinuedpredniSONE 20 MG Tablet 1 tablet Orally twice daily Medication List reviewed and reconciled with the patientDiscontinued predniSONE 20 MG Tablet 1 tablet Orally twice daily Medication List reviewed and reconciled with the patient * Allergies: N .K.D.A.no[Allergies Verified] Objective: * Vitals: T emp:97.7F, Wt:217lbs, Ht: 65.00 in, BMI:36.11Index, BP: 169/75 mm Hg,157/82mm Hg, HR:66/min, RR:18/min, Pain scale:01-10, Oxygen sat %:98%, Wt-k.43 kg, Ht- cm: 165.10 cm, Body Surface Area: 2.12. AkinsDavid petersen 02/22/2025 07:12:29 AM EDT >. * Examination: C QM Exceptions: Currently taking Aspirin: A spirin Use: N o G eneral Examination: General appearance: a lert, pleasant, well-nourished and in no acute distress. Head: n ormocephalic, atraumatic. Heart: r egular rate and rhythm without murmurs, gallops, clicks or rubs. Lungs: c lear to auscultation bilaterally, with good air movement and no rales, rhonchi or wheezes. Psych: a lert and oriented x 3 , cooperative with exam,?normal affect / mood , speech is clear and coherent. Assessment: * Assessment: 1. P rimary hypertension - I10 (Primary) 2 . B DE 36.0-36.9,adult - Z68.36? 3. O besity, Class II, BMI 35-39.9 - E66.812 Plan: * Treatment: * Procedure Codes: 3 077F HTN SYST BP >= [id number] HTN DIAST BP = 80-89 * Preventive Medicine: Counseling: C ommunication to patient: Counseling for nutrition provided Y es Counseling for physical activity provided Y es * Follow Up: 1 month HTN * Billing Information: * Visit Code: [id number] Office Visit Est 20-29 minutes. * Procedure Codes: 3077F HTN SYST BP >= 140. 3079F HTN DIAST BP = 80-89. * Sign off status: Completed true * Provider: Monty Milan Date: 0 02/22/2025 Generated for Keira cavazos/Faxing/eTransmitting on: 0 02/25/2025 06:04 PM EDT History and Physical Notes * HPI (History of Present Illness) Category Sub-Category Detail Notes Category Not es Interim History HYPERTENSION Medication: Losartan 50mg 1QD Pt last seen 01/08/25 for appt Pt reported dry chronic cough w/ Lisinopril so switched to Losartan 50mg (from Lisinopril 40mg) Pt reports he has more joint pain from the med change Home BP readings: Pt reports he has been running 130's/80's Patient denies headache, vision changes, chest pain, shortness of breath/difficulty breathing, decreased exercise tolerance, dizziness/lightheadedness, syncope/near syncope, orthopnea, fatigue, and sweats. Examination Category Sub-Category Detail Notes Category Not es General Examination General appearance: alert, p leasant, well-nourished and in no acute distress Head: normocephalic, atrau matic Heart: regular rate and rhy thm without murmurs, gallops, clicks or rubs Lungs: clear to auscultatio n bilaterally, with good air movement and no rales, rhonchi or wheezes Psych: alert and oriented x 3 , cooperative with exam, normal affect / mood , speech is clear and coherent CQM Exceptions Currently taking Aspirin: Aspirin Use:: No
[2025-02-25 18:03] VITALS: BP 143/77; PULSE 97; TEMP 37.2; O2SAT 96; BMI 30.4
--- OUTSIDE RECORDS SUMMARY | 2025-02-25 18:04 | XMS_ITS | Clinical Summary ---
Author Organization [employer] tem Address [id number] [address] 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
--- NOTE | 2025-02-25 18:22 | CT_ITS ---
The [address] [address] Patient Name: BISHNU ROLON MRN: [id number] date: 1960 Sex: M Assigned Patient Location: ED.MAIN Current Patient Location: ER Accession/Order Number: [id number] Exam Date: 02/25/2025 19:15 Report Date: 02/25/2025 19:16 At the request of: REE SOMERS MD Procedure: CT cervical spine wo con CT CERVICAL SPINE WITHOUT CONTRAST: CLINICAL HISTORY: fall COMPARISON: 09/04/2024 TECHNIQUE: Contiguous axial unenhanced images were obtained through the cervical spine. This CT exam was performed using one or more following dose reduction techniques: Automated exposure control, adjustment of the mA and/or kV according to patient size, or use of iterative reconstruction technique. FINDINGS: Mild straightening and reversal of the normal cervical lordosis. Mild multilevel degenerative changes identified with multilevel endplate osteophytosis and endplate spurring. Mild multilevel facet arthropathy. Mild dextrocurvature. No evidence of acute displaced fracture or malalignment. CT/CT cervical spine wo con IMPRESSION: Mild degenerative change. Negative acute osseous abnormalities. Impression dictated by: Matias Jennings M.D. 02/25/2025 7:16 PM Dictation Location: [place] [employer] [facility] [employer] Electronically authenticated by: [id number] Y Date: 02/25/2025 19:16
--- NOTE | 2025-02-25 18:22 | CT_ITS ---
The [place] [id number] Patient Name: BISHNU ROLON MRN: [id number] date: 1960 Sex: M Assigned Patient Location: ER Current Patient Location: ER Accession/Order Number: [id number] Exam Date: 02/25/2025 19:21 Report Date: 02/25/2025 19:25 At the request of: REE SOMERS MD Procedure: CT abdomen pelvis wo con CT ABDOMEN AND PELVIS WITHOUT INTRAVENOUS CONTRAST: CLINICAL HISTORY: fall COMPARISON: None TECHNIQUE: Spiral images were obtained through the abdomen and pelvis without intravenous contrast. This CT exam was performed using one or more following dose reduction techniques: Automated exposure control, adjustment of the mA and/or kV according to patient size, or use of iterative reconstruction technique. FINDINGS: Lung Bases: [No focal opacity] Organs:Evaluation degraded due to lack contrast. Fatty infiltration of the liver. Focal fatty sparing gallbladder fossa. Otherwise liver, gallbladder, spleen, adrenals, pancreas unremarkable.. Left lower pole renal calculus, nonobstructive. Left sided calculi level of the left ureteral pelvic junction noted without hydronephrosis. No definite ureterolithiasis.[ GI: Mild retained stool. No bowel obstruction. Mild to moderate colonic diverticulosis. Appendix unremarkable.[ Pelvis:[Bladder unremarkable. No adnexal mass. Bladder prostate unremarkable.] Peritoneum/Retroperitoneum: No free air or free fluid. Qbny-rc-nhzyphbs plaque evolving the nonaneurysmal aorta. Abd wall/Bones: [Degenerative changes both hips. Degenerative changes of the lumbar spine.[ CT/CT abdomen pelvis wo con IMPRESSION: Negative for acute posttraumatic process on this noncontrast examination. Left renal calculi without hydronephrosis. Colonic diverticulosis. Fatty liver. Impression dictated by: Matias Jennings M.D. 02/25/2025 7:25 PM Dictation Location: [place] [address] Electronically authenticated by: [id number] Y Date: 02/25/2025 19:25
--- NOTE | 2025-02-25 18:22 | CT_ITS ---
The [address] [address] Patient Name: BISHNU ROLON MRN: [id number] date: 1960 Sex: M Assigned Patient Location: ED.MAIN Current Patient Location: ER Accession/Order Number: [id number] Exam Date: 02/25/2025 19:10 Report Date: 02/25/2025 19:12 At the request of: REE SOMERS MD Procedure: CT head/brain wo con CT BRAIN WITHOUT CONTRAST: CLINICAL HISTORY: fall COMPARISON: 09/04/2024 TECHNIQUE: Contiguous axial unenhanced images were obtained through the brain. This CT exam was performed using one or more following dose reduction techniques: Automated exposure control, adjustment of the mA and/or kV according to patient size, or use of iterative reconstruction technique. FINDINGS: There is no evidence of midline shift, intra or extra-axial fluid collection, hemorrhage or CT evidence of acute large vascular distribution stroke Intracranial vascular calcifications. Visualized intraorbital contents appear unremarkable. Visualized paranasal sinuses are clear. The surrounding soft tissues are normal. CT/CT head/brain wo con IMPRESSION: NO ACUTE INTRACRANIAL ABNORMALITY. Impression dictated by: Matias Jennings M.D. 02/25/2025 7:12 PM Dictation Location: [place] [address] Electronically authenticated by: [id number] Y Date: 02/25/2025 19:12
--- NOTE | 2025-02-25 18:22 | CT_ITS ---
[address] [address] Patient Name: BISHNU ROLON MRN: [id number] date: 1960 Sex: M Assigned Patient Location: ED.MAIN Current Patient Location: ER Accession/Order Number: [id number] Exam Date: 02/25/2025 19:17 Report Date: 02/25/2025 19:21 At the request of: REE SOMERS MD Procedure: CT chest wo con CT CHEST WITHOUT IV CONTRAST: CLINICAL HISTORY: fall COMPARISON: None TECHNIQUE: Spiral images were obtained through the chest without IV contrast. This CT exam was performed using one or more following dose reduction techniques: Automated exposure control, adjustment of the mA and/or kV according to patient size, or use of iterative reconstruction technique. FINDINGS: Mildly enlarged cardiomediastinal silhouette. Aortic valvular and coronary artery calcifications. Mild ossific bases involving the aorta. Aorta is not aneurysmal. No pericardial effusion. No bulky adenopathy. Minor hypoventilatory change. No focal airspace opacity effusion or pneumothorax. No displaced rib fracture. Degenerative changes of the thoracic spine. No thoracic compression fracture. CT/CT chest wo con IMPRESSION: Negative acute posttraumatic process involving chest. Impression dictated by: Matias Jennings M.D. 02/25/2025 7:21 PM Dictation Location: [place] [address] Electronically authenticated by: [id number] Y Date: 02/25/2025 19:21
--- NOTE | 2025-02-25 18:24 | XR_ITS ---
The [address] [address] Patient Name: BISHNU ROLON MRN: [id number] date: 1960 Sex: M Assigned Patient Location: ED.MAIN Current Patient Location: ER Accession/Order Number: [id number] Exam Date: 02/25/2025 19:41 Report Date: 02/25/2025 19:42 At the request of: REE SOMERS MD Procedure: XR elbow LT min 3V 3 views left elbow INDICATION: Fall COMPARISON: None FINDINGS: No fracture-dislocation. Mild degenerative change. Anterior fat pad elevation may suggest underlying joint effusion. There are opaque foreign body. XR/XR elbow LT min 3V IMPRESSION: Negative acute osseous abnormality. Impression dictated by: Matias Jennings M.D. 02/25/2025 7:42 PM Dictation Location: [place] [address] Electronically authenticated by: [id number] Y Date: 02/25/2025 19:42
--- NOTE | 2025-02-25 18:24 | XR_ITS ---
The [address] [address] Patient Name: BISHNU ROLON MRN: [id number] date: 1960 Sex: M Assigned Patient Location: ED.MAIN Current Patient Location: ER Accession/Order Number: [id number] Exam Date: 02/25/2025 19:39 Report Date: 02/25/2025 19:41 At the request of: REE SOMERS MD Procedure: XR knee RT 3V RIGHT KNEE - 3 views CLINICAL HISTORY: swelling COMPARISON: None FINDINGS: Ndop-lg-mnuzkoqf tricompartmental degenerative change. No fracture or dislocation. Trace joint effusion. XR/XR knee RT 3V IMPRESSION: Degenerative change. Negative acute osseous abnormality. Impression dictated by: Matias Jennings M.D. 02/25/2025 7:41 PM Dictation Location: [place] [address] Electronically authenticated by: [id number] Y Date: 02/25/2025 19:41
--- NOTE | 2025-02-25 18:24 | XR_ITS ---
The [place] [id number] Patient Name: BISHNU ROLON MRN: [id number] date: 1960 Sex: M Assigned Patient Location: ED.MAIN Current Patient Location: ER Accession/Order Number: [id number] Exam Date: 02/25/2025 19:37 Report Date: 02/25/2025 19:39 At the request of: REE SOMERS MD Procedure: XR hand ANDRES min 3v 3 views right hand 3 views left knee INDICATION: Fall COMPARISON: None FINDINGS: [place] degenerative changes involving the interphalangeal joints No soft tissue swelling. No fracture or dislocation. XR/XR hand ANDRES min 3v IMPRESSION: Degenerative change without acute osseous abnormality. Impression dictated by: Matias Jennings M.D. 02/25/2025 7:39 PM Dictation Location: [place] [address] Electronically authenticated by: [id number] Y Date: 02/25/2025 19:39
[2025-02-25] MEDS: MORPHINE SULFATE 4 MG/ML VIAL IV (18:35)
--- NOTE | 2025-02-25 18:41 | ED.GENADUL1 ---
HPI HPI - General Adult General Chief complaint: Fall Stated complaint: FELL OFF LADDER, PAIN THROUGHOUT BODY Time Seen by Provider: 02/25/25 18:09 Source: patient Mode of arrival: Wheelchair Limitations: no limitations History of Present Illness HPI narrative: The patient is a 64-year-old male is coming to us by private car after he had a fall while he was helping a friend on the roof of his house that almost 12 feet high, but the patient mentioned that he was getting down from the roof when he actually had the ladder under him and it got twisted initially his right leg caught him and then got attached to the ladder for few minutes before he actually fell 10 feet down to the floor, he did not hit his head he had his hip the first thing that touch the floor, and he is complaining of severe back and, and mostly posterior chest wall pain. The patient also have a left hip pain and his upper and lower extremity have abrasion and contusion to the posterior aspect of the elbow. Patient also have right knee pain after he was caught by the ladder with his knee Related Data Home Medications ?Medication ?Instructions ?Recorded ?Confirmed allopurinol 300 mg tablet 150 mg PO .QD 12/29/24 12/30/24 lisinopril 40 mg tablet 40 mg PO .QD 12/29/24 12/30/24 Previous Rx's ?Medication ?Instructions ?Recorded ciprofloxacin HCl 500 mg tablet 500 mg PO Q12H #18 tabs 12/30/24 (Cipro) Allergies Allergy/AdvReac Type Severity Reaction Status Date / Time No Known Drug Allergies Allergy Verified 12/29/24 17:17 Opioid HPI Opioid Management Most Recent Opioid Data: Last Pain Scale 6 Today, 18:35 Last MAR Pain Assessment Today, 18:35 Last ORT Total Score 0 12/29/24, 21:33 Last ORT Risk Category Low Risk 12/29/24, 21:33 Review of Systems ROS Status of ROS 10 or more systems reviewed and unremarkable except as noted in history and below [facility] Medical History (Updated 02/25/25 @ 18:41 by Ellie Terrell MD) Acute kidney injury ?N17.9 - Acute kidney failure, unspecified (ICD-10) Acute UTI (urinary tract infection) ?N39.0 - Urinary tract infection, site not specified (ICD-10) Chest pain ?R07.9 - Chest pain, unspecified (ICD-10) Hypertension ?I10 - Essential (primary) hypertension (ICD-10) Social History (Updated 12/29/24 @ 21:57 by Carlota Rodríguez RN) Within the past year, how often did you have a drink containing alcohol: never Within the past year, how often did you have six or more drinks on one occasion: never Score interpretation: A score less than 4 is consistent with normal alcohol consumption. Smoking status: Never smoker Second hand tobacco smoke exposure: No Non-prescribed substance use: denies use Known occupational exposures/hazards: No Highest level of school completed/degree received: high school graduate Do you want help with school or training: No Are you now , , , , never or living with a partner: In a typical week, how many times do you talk on the telephone with family, friends, or neighbors: 3 or more times per week Little interest or pleasure in doing things: not at all Feeling down, depressed, or hopeless: not at all Feel stressed/tense/nervous/anxious/difficulty sleeping: not at all Exam Narrative Exam Narrative: Nurses notes and vital signs reviewed and patient is not hypoxic. General: Well-appearing and in no apparent distress. Skin: Warm, dry, no pallor noted. No rash. Head: Normocephalic, atraumatic. Neck: Supple, non-tender. Eye: Pupils are equal, round and EOMI. No scleral icterus. Ears, Nose, Mouth, and Throat: TM are clear, no nasal mucosal hypertrophy. Oral mucosa is moist, no posterior oropharynx erythema, uvula is mid-line Cardiovascular: Regular Rate and Rhythm without murmur, gallop or rub. Respiratory: No accessory muscle use or respiratory distress. Lungs are clear to auscultation, no wheezing, rales or rhonchi Chest Wall: Tenderness palpation of the posterior aspect of both chest wall mostly at the scapula bilaterally down to the lower ribs bilaterally with no ecchymosis that is obvious no crepitus and the patient have a good air entry Back: No midline thoracic or lumbar vertebral tenderness. No CVA tenderness Musculoskeletal: There is a contusion to the posterior aspect of the left elbow with no deformity there is swelling and redness and pain and the patient also have contusion to the left hand mostly the small finger with abrasion to the proximal phalanx, patient also have contusion to the right hand and mostly an abrasion that is healing to the palm There is a swelling in the right lower extremity mostly at the knee and mildly proximal to that with abrasion that is superficial across the the proximal knee and distal thigh GI: Abdomen is soft, non-distended. Normal bowel sounds. No masses appreciated. No tenderness to palpation. No rebound, guarding, or rigidity noted. Neurological: A&O x4. No cranial nerve dysfunction observed. No truncal ataxia. Moves all extremities. Sensation intact. Psychiatric: Cooperative and interactive. Normal mood and affect. Constitutional Vital Signs, click to edit/add: Last Vital Signs Temp 98.9 F 02/25/25 18:03 Pulse 97 H 02/25/25 18:03 Resp 18 02/25/25 18:03 BP 143/77 H 02/25/25 18:03 Pulse Ox 96 02/25/25 18:03 O2 Del Method Room Air 02/25/25 18:03 Course Vital Signs Vital signs: Vital Signs Temperature 98.9 F 02/25/25 18:03 Pulse Rate 97 H 02/25/25 18:03 Respiratory Rate 18 02/25/25 18:03 Blood Pressure 143/77 H 02/25/25 18:03 Pulse Oximetry 96 02/25/25 18:03 Oxygen Delivery Method Room Air 02/25/25 18:03 Temperature 98.9 F 02/25/25 18:03 Pulse Rate 97 H 02/25/25 18:03 Respiratory Rate 18 02/25/25 18:03 Blood Pressure 143/77 H 02/25/25 18:03 Pulse Oximetry 96 02/25/25 18:03 Oxygen Delivery Method Room Air 02/25/25 18:03 Medical Decision Making [facility] Narrative Medical decision making narrative: On arrival with the concern for the mechanism of injury the patient had cervical collar placed He has a history of chronic kidney disease CBC chemistry ordered and the patient also had morphine for pain CT of the head as well as CT cervical obtained although the patient does not have any pain but just because of the mechanism injury from a 10 feet fall The patient also had a CT of the abdomen and pelvis without contrast for now at the patient history of chronic kidney disease awaiting the evaluation of the blood workup CT also of the chest and x-ray of the upper and lower extremities ordered included the left elbow and the right hand and the left hand and the right knee Discharge Plan Discharge Patient Disposition: Still a Patient
[2025-02-25 18:45] LABS: Hematocrit 40.9 % (42.0-54.0); Hemoglobin 14.2 g/dL (14.0-18.0); Immature Granulocytes Abs Auto 0.02 10^3/uL (0.00-0.03); Immature Granulocytes Pct Auto 0.3 % (0.0-0.5); Lymphocytes Absolute Auto 1.6 10^3/uL (1.2-3.8); Mean Corpuscular HGB Conc 34.7 g/dL (29.9-35.2); Mean Corpuscular Hemoglobin 29.4 pg (25.9-34.0); Mean Corpuscular Volume 84.7 fL (80.0-94.0); Platelet Count 197 10^3/uL (150-450); Red Blood Count 4.83 10^6/uL (4.70-6.10); White Blood Count 7.0 10^3/uL (4.0-11.0)
[2025-02-25 19:10] LABS: Alanine Aminotransferase 34 U/L (16-63); Albumin Globulin Ratio 0.9; Albumin Level 3.7 g/dL (3.4-5.0); Alkaline Phosphatase 105 U/L (46-116); Anion Gap 14.0; Blood Urea Nitrogen 18.0 mg/dL (7.0-18.0); Calcium 8.7 mg/dL (8.5-10.1); Carbon Dioxide 26.8 mmol/L (21.0-32.0); Chloride 104 mmol/L (98-107); Estimated GFR (African America >60 (>=60 mL/min/1.73m^2); Estimated GFR (Non-African Ame >60 (>=60 mL/min/1.73m^2); Globulin 3.9 g/dL; Sodium 141 mmol/L (136-145); Total Protein 7.6 g/dL (6.4-8.2)
[2025-02-25 19:12] LABS: Glucose 129 mg/dL (74-106); Potassium 3.8 mmol/L (3.5-5.1)
[2025-02-25] MEDS: DIPHTH,PERTUSS(ACELL),TET VAC 0.5 ML SYRINGE IM (19:46)
[2025-02-25 20:24] LABS: Alanine Aminotransferase 36 U/L (16-63); Albumin Globulin Ratio 0.9; Albumin Level 3.5 g/dL (3.4-5.0); Alkaline Phosphatase 94 U/L (46-116); Anion Gap 11.9; Blood Urea Nitrogen 18.0 mg/dL (7.0-18.0); Calcium 8.4 mg/dL (8.5-10.1); Carbon Dioxide 29.1 mmol/L (21.0-32.0); Chloride 106 mmol/L (98-107); Estimated GFR (African America >60 (>=60 mL/min/1.73m^2); Estimated GFR (Non-African Ame >60 (>=60 mL/min/1.73m^2); Globulin 3.7 g/dL; Sodium 143 mmol/L (136-145); Total Protein 7.2 g/dL (6.4-8.2)
[2025-02-25 20:27] LABS: Aspartate Amino Transferase 25 U/L (15-37); Glucose 117 mg/dL (74-106); Potassium 4.0 mmol/L (3.5-5.1)
[2025-02-25] MEDS: HYDROCODONE/ACET 5-325 MG TABLET 1 TAB PO (21:27)
[2025-02-25] MEDS: CYCLOBENZAPRINE HCL 10 MG TABLET 5 MG PO (21:27)
[2025-02-25 21:35] VITALS: PULSE 85; O2SAT 98
== END 2025-02-25 21:37 | disposition home or self-care (01) ==
PROVIDERS: Emergency Provider Emergency Medicine; PCP Nurse Practitioner Family
DX: S40.022A Contusion of left upper arm, initial encounter (principal); S60.222A Contusion of left hand, initial encounter; S60.221A Contusion of right hand, initial encounter; W17.89XA Other fall from one level to another, initial encounter; S60.512A Abrasion of left hand, initial encounter; S60.511A Abrasion of right hand, initial encounter; S60.419A Abrasion of unspecified finger, initial encounter; N18.9 Chronic kidney disease, unspecified; K76.0 Fatty (change of) liver, not elsewhere classified; K57.30 Diverticulosis of large intestine without perforation or abscess without bleeding; Z23 Encounter for immunization
CPT/HCPCS: 36415; 70450; 71250; 72125; 73080; 73130; 73562; 74176; 80053; 85025; 90471; 96374; 99285; J2270

== ENCOUNTER 2025-03-08 14:03 | Emergency (ER) | payer OTHER, SELFPAY ==
[2025-03-08 14:06] VITALS: BP 155/75; PULSE 69; TEMP 36.7; O2SAT 98; BMI 30.4
--- NOTE | 2025-03-08 14:34 | ED.ABDPAIN1 ---
HPI - Abdominal Pain General Chief Complaint: Abdominal Pain Stated Complaint: KIDNEY PAIN Time Seen by Provider: 03/08/25 14:08 Source: patient Mode of arrival: walk-in History of Present Illness HPI narrative: Patient presents to the ED with a complaint of left flank pain. He states it started yesterday. He describes it is achy. He is unable to get no a comfortable position he is standing up in bed rocking back and forth. Patient denies any hematuria. No fever or chills. No urinary urgency or frequency. She does typically have kidney stones frequently has never had to have surgery he states he typically takes care of him at home with a concoction including lemon juice and olive oil. He states that did not work this time. He did have a UTI several months ago but does not typically have UTIs he has no history of prostatitis. He has never had any intervention on his kidneys or bladder. He has no other complaints at this time MD elicited complaint: Reports flank pain Pertinent past history: Reports kidney stones and past UTI Onset (ago): day(s) Pain Consistency: Reports constant Location: Reports L flank Severity: moderate Quality: Reports stabbing and aching Radiation: Reports L flank Migration to: Reports no migration Exacerbating factors: Reports nothing Relieving factors: Reports nothing Associated symptoms: Reports nausea and vomiting; Denies diarrhea, fever, chills or constipation Related Data Home Medications ?Medication ?Instructions ?Recorded ?Confirmed lisinopril 40 mg tablet 40 mg PO .QD 12/29/24 03/08/25 amlodipine 5 mg tablet 5 mg PO DAILY 03/08/25 03/08/25 losartan 50 mg tablet 50 mg PO DAILY 03/08/25 03/08/25 Previous Rx's ?Medication ?Instructions ?Recorded ketorolac 10 mg tablet 10 mg PO Q8H PRN pain 3 days #10 03/08/25 tabs oxycodone-acetaminophen 5 mg-325 1 tab PO Q6H PRN pain #12 tabs 03/08/25 mg tablet (Percocet) tamsulosin 0.4 mg capsule (Flomax) 0.4 mg PO DAILY #10 caps 03/08/25 Allergies Allergy/AdvReac Type Severity Reaction Status Date / Time No Known Drug Allergies Allergy Verified 12/29/24 17:17 [facility] Medical History (Updated 03/08/25 @ 17:12 by MAGDALENA WATSON) Kidney stone ?N20.0 - Calculus of kidney (ICD-10) Acute kidney injury ?N17.9 - Acute kidney failure, unspecified (ICD-10) Acute UTI (urinary tract infection) ?N39.0 - Urinary tract infection, site not specified (ICD-10) Chest pain ?R07.9 - Chest pain, unspecified (ICD-10) Hypertension ?I10 - Essential (primary) hypertension (ICD-10) Social History (Updated 12/29/24 @ 21:57 by Carlota Rodríguez RN) Within the past year, how often did you have a drink containing alcohol: never Within the past year, how often did you have six or more drinks on one occasion: never Score interpretation: A score less than 4 is consistent with normal alcohol consumption. Smoking status: Never smoker Second hand tobacco smoke exposure: No Non-prescribed substance use: denies use Known occupational exposures/hazards: No Highest level of school completed/degree received: high school graduate Do you want help with school or training: No Are you now , , , , never or living with a partner: In a typical week, how many times do you talk on the telephone with family, friends, or neighbors: 3 or more times per week Little interest or pleasure in doing things: not at all Feeling down, depressed, or hopeless: not at all Feel stressed/tense/nervous/anxious/difficulty sleeping: not at all Exam Constitutional Vital Signs, click to edit/add: Last Vital Signs Temp 98.0 F 03/08/25 14:06 Pulse 72 03/08/25 18:00 Resp 18 03/08/25 18:00 BP 147/82 H 03/08/25 18:00 Pulse Ox 99 03/08/25 18:00 O2 Del Method Room Air 03/08/25 18:00 Documenting provider has reviewed patient's vital signs: yes Common normals: no apparent distress, average body habitus, oriented x3, no limitations, healthy appearing, alert and well nourished Chest Common normals: inspection of chest normal Respiratory Common normals: normal respiratory effort and clear to auscultation bilaterally Cardio Common normals: regular rate, regular rhythm and no murmurs GI Common normals: Normal to inspection, nondistended, normoactive bowel sounds present, soft to palpation and non-tender Back & Pelvis Common normals: thoracic and lumbar spine normal to inspection, no thoracic nor lumbar tenderness, thoraco-lumbar ROM normal and straight leg raise negative bilaterally General back: CVA tenderness Thoracic spine/upper back: normal to inspection and thoracic ROM normal Extremity Common normals: normal to inspection, full ROM and normal capillary refill Neuro Common normals: oriented x3 Sensorium/orientation: awake, oriented to person, oriented to place and oriented to time Psych Common normals: mental status grossly normal, thought process normal, cooperative, affect normal and speech normal Course Reevaluation(s) Time: 17:53 Additional Reevaluation(s): Patient pain better after morphine. He will be discharged with pain medication and follow up with Dr. Parra urology this week. Flomax will also be given to assist in movement of this stone. He can return with worsening or returning symptoms. Vital Signs Vital signs: Vital Signs Temperature 98.0 F 03/08/25 14:06 Pulse Rate 69 03/08/25 14:06 Respiratory Rate 18 03/08/25 14:06 Blood Pressure 155/75 H 03/08/25 14:06 Pulse Oximetry 98 03/08/25 14:06 Oxygen Delivery Method Room Air 03/08/25 14:06 Temperature 98.0 F 03/08/25 14:06 Pulse Rate 72 03/08/25 18:00 Respiratory Rate 18 03/08/25 18:00 Blood Pressure 147/82 H 03/08/25 18:00 Pulse Oximetry 99 03/08/25 18:00 Oxygen Delivery Method Room Air 03/08/25 18:00 MDM - Abdominal Pain MDM Narrative Medical decision making narrative: Patient presents to the ED with a complaint of left flank pain. He states it started yesterday. He describes it is achy. He is unable to get no a comfortable position he is standing up in bed rocking back and forth. Patient denies any hematuria. No fever or chills. No urinary urgency or frequency. She does typically have kidney stones frequently has never had to have surgery he states he typically takes care of him at home with a concoction including lemon juice and olive oil. He states that did not work this time. He did have a UTI several months ago but does not typically have UTIs he has no history of prostatitis. He has never had any intervention on his kidneys or bladder. He has no other complaints at this time Patient to be in discomfort. He is pacing around his room. Patient's heart and lung exam is clear. He does have left CVA tenderness. Abdomen is soft and nontender no rebound or guarding. Patient is alert and oriented. Patient was started on IV fluids and given Toradol for pain. Labs were drawn and patient had a CT ordered. White count of 14. I did go ahead and order a gram of Rocephin. Patient's CT did show an 8 mm obstructive stone. Patient was given IV fluids Flomax and pain control. Dr. Mosquera also evaluated the patient, ED attending. Recommended pain control, Flomax, follow-up with urology. This was discussed with the patient by both ED attending and myself. Patient was agreeable to this plan of care. Pain was able to be managed. There is no sign of UTI. Patient will be discharged home in stable condition at this time. Medical Records Attestation: I reviewed the patient's medical records. Lab Data Attestation: I reviewed the patient's lab results. Labs: Lab Results 03/08/25 Range/Units 14:35 WBC 14.2 H (4.0-11.0) 10^3/uL RBC 4.86 (4.70-6.10) 10^6/uL Hgb 14.2 (14.0-18.0) g/dL Hct 40.0 L (42.0-54.0) % MCV 82.3 (80.0-94.0) fL MCH 29.2 (25.9-34.0) pg MCHC 35.5 H (29.9-35.2) g/dL RDW 13.2 (11.0-15.0) % Plt Count 252 (150-450) 10^3/uL MPV 10.7 (9.5-13.5) fL Neut % (Auto) 79.2 H (43.0-75.0) % Lymph % (Auto) 12.2 L (20.5-60.0) % [place] % (Auto) 7.7 (1.7-12.0) % Eos % (Auto) 0.4 L (0.9-7.0) % Baso % (Auto) 0.2 (0.2-2.0) % Neut # (Auto) 11.3 H (1.4-6.5) 10^3/uL Lymph # (Auto) 1.7 (1.2-3.8) 10^3/uL [place] # (Auto) 1.1 H (0.3-0.8) 10^3/uL Eos # (Auto) 0.1 (0.0-0.7) 10^3/uL Baso # (Auto) 0.0 (0.0-0.1) 10^3/uL Abs Immat Gran (auto) 0.04 H (0.00-0.03) 10^3/uL Imm/Tot Granulo (auto) 0.3 (0.0-0.5) % Sodium 136 (136-145) mmol/L Potassium 3.9 (3.5-5.1) mmol/L Chloride 101 (98-107) mmol/L Carbon Dioxide 27.1 (21.0-32.0) mmol/L Anion Gap 11.8 BUN 15.0 (7.0-18.0) mg/dL Creatinine 1.32 H (0.70-1.30) mg/dL Est GFR ( Amer) >60 (>=60 mL/min/1.73m^2) Est GFR (Non-Af Amer) 55 L (>=60 mL/min/1.73m^2) BUN/Creatinine Ratio 11.4 Glucose 114 H (74-106) mg/dL Calcium 9.1 (8.5-10.1) mg/dL Total Bilirubin 0.7 (0.2-1.0) mg/dL AST 24 (15-37) U/L ALT 33 (16-63) U/L Alkaline Phosphatase 99 (46-116) U/L Total Protein 7.8 (6.4-8.2) g/dL Albumin 3.8 (3.4-5.0) g/dL Globulin 4.0 g/dL Albumin/Globulin Ratio 0.9 Urine Color Lt. yellow (YELLOW) Urine Clarity Clear (CLEAR) Urine pH 6.0 (5.0-9.0) Ur Specific [place] 1.015 (1.005-1.025) Urine Protein Negative (NEG/TRACE) mg/dL Urine Glucose (UA) Negative (NEGATIVE) mg/dL Urine Ketones Negative (NEGATIVE) mg/dL Urine Occult Blood Moderate A (NEGATIVE) Urine Nitrite Negative (NEGATIVE) Urine Bilirubin Negative (NEGATIVE) Urine Urobilinogen 0.2 (0.2-1.0) EU/dL Ur Leukocyte Esterase Small A (NEGATIVE) Urine RBC 5-10 A (0-2) #/HPF Urine WBC 5-10 A (NONE SEEN) #/HPF Ur Squamous Epith Cells Rare (NONE/RARE) #/LPF Urine Crystals None seen (None Seen) #/HPF Urine Bacteria Trace A (NONE SEEN) #/HPF Urine Casts None seen (NONE SEEN) #/LPF Urine Mucus None seen (NONE SEEN) Ur Culture Indicated? [facility] [place] Imaging Data CT scan - abdomen: Attestation: I have reviewed the pertinent imaging results. Radiologist's impression: ITS Impressions Abdomen/Pelvis CT 03/08/25 15:55 IMPRESSION: Similar 8 mm left UPJ obstructing stone with developing mild hydronephrosis and mild distal migration. Impression dictated by: Madhav Belcher M.D. 03/08/2025 4:06 PM Dictation Location: [facility] Electronically authenticated by: [id number] Y Date: 03/08/2025 16:06 Discharge Plan Discharge Chief Complaint: Abdominal Pain Clinical Impression: Ureterolithiasis Patient Disposition: Home, Self-Care Time of Disposition Decision: 17:12 Condition: Good Mode of Transportation: Private Vehicle Prescriptions / Home Meds: New tamsulosin [Flomax] 0.4 mg capsule 0.4 mg PO DAILY Qty: 10 0RF ketorolac 10 mg tablet 10 mg PO Q8H PRN (Reason: pain) 3 Days Qty: 10 0RF oxycodone-acetaminophen [Percocet] 5-325 mg tablet 1 tab PO Q6H PRN (Reason: pain) Qty: 12 0RF No Action lisinopril 40 mg tablet 40 mg PO .QD amlodipine 5 mg tablet 5 mg PO DAILY losartan 50 mg tablet 50 mg PO DAILY Print Language: Turkmen Instructions: Low Oxalate Diet (ED), Ureteral Stones (ED) Referrals: [facility] [Primary Care Provider, Unknown] - 1 week Devin Parra MD [Physician, Urology] - 1 week Referral Note: Call tomorrow for follow up. Return to ED if worsen or with any concerns. Discharge Date/Time: 03/08/25 18:00
[2025-03-08] MEDS: 0.9 % SODIUM CHLORIDE 1,000 ML 999 ML IV (14:43)
[2025-03-08 14:44] LABS: Glucose Urine UA NEGATIVE (NEGATIVE); Hematocrit 40.0 % (42.0-54.0); Hemoglobin 14.2 g/dL (14.0-18.0); Immature Granulocytes Abs Auto 0.04 10^3/uL (0.00-0.03); Immature Granulocytes Pct Auto 0.3 % (0.0-0.5); Lymphocytes Absolute Auto 1.7 10^3/uL (1.2-3.8); Mean Corpuscular HGB Conc 35.5 g/dL (29.9-35.2); Mean Corpuscular Hemoglobin 29.2 pg (25.9-34.0); Mean Corpuscular Volume 82.3 fL (80.0-94.0); Platelet Count 252 10^3/uL (150-450); Red Blood Count 4.86 10^6/uL (4.70-6.10); White Blood Count 14.2 10^3/uL (4.0-11.0)
[2025-03-08] MEDS: KETOROLAC TROMETHAMINE 30 MG/ML VIAL IVP (14:47)
[2025-03-08 14:53] LABS: Cast Seen? NONE SEEN #/LPF (NONE SEEN); Crystals Seen? None Seen #/HPF (None Seen); Urine Culture Indicated YES-FRMC
[2025-03-08 14:58] LABS: Alanine Aminotransferase 33 U/L (16-63); Albumin Globulin Ratio 0.9; Albumin Level 3.8 g/dL (3.4-5.0); Alkaline Phosphatase 99 U/L (46-116); Anion Gap 11.8; Aspartate Amino Transferase 24 U/L (15-37); Blood Urea Nitrogen 15.0 mg/dL (7.0-18.0); Calcium 9.1 mg/dL (8.5-10.1); Carbon Dioxide 27.1 mmol/L (21.0-32.0); Chloride 101 mmol/L (98-107); Estimated GFR (African America >60 (>=60 mL/min/1.73m^2); Estimated GFR (Non-African Ame 55 (>=60 mL/min/1.73m^2); Globulin 4.0 g/dL; Glucose 114 mg/dL (74-106); Potassium 3.9 mmol/L (3.5-5.1); Sodium 136 mmol/L (136-145); Total Protein 7.8 g/dL (6.4-8.2)
--- NOTE | 2025-03-08 15:55 | CT_ITS ---
The [address] [address] Patient Name: BISHNU ROLON MRN: [id number] date: 1960 Sex: M Assigned Patient Location: ER Current Patient Location: ER Accession/Order Number: [id number] Exam Date: 03/08/2025 15:57 Report Date: 03/08/2025 16:06 At the request of: BRIAN NICHOLS Procedure: CT abdomen pelvis wo con CT Abdomen and Pelvis withoutcontrast TECHNIQUE: Axial imaging with 2-D reconstruction. . The CT exam was performed using one or more the following dose reduction techniques: Automated exposure control, adjustment of the MA and/or Kv according to patient size, or use of the iterative reconstruction technique. COMPARISON: 02/25/2025 History: Left flank pain and lower back pain for 2 days LIMITATIONS: None LOWER THORAX mild atelectasis/scarring LIVER: Hepatic steatosis with potential tiny hepatic cysts. GALLBLADDER: No gallbladder abnormality identified. BILE DUCTS: No dilatation SPLEEN: Unremarkable PANCREAS: Unremarkable ADRENAL GLANDS: Unremarkable KIDNEYS:Left nephrolithiasis measuring up to 5 mm. 8 mm left UPJ stone with mild hydronephrosis. AORTA: No abdominal aortic aneurysm identified. RETROPERITONEUM: No significant retroperitoneal abnormalities identified. MESENTERY:Unremarkable STOMACH:Unremarkable SMALL BOWEL: The small bowel loops are nondistended. APPENDIX: The appendix is normal. COLON: Diverticulosis URINARY BLADDER: Urinary bladder is unremarkable. REPRODUCTIVE SYSTEM: Reproductive structures are unremarkable. PNEUMOPERITONEUM: None PERITONEAL FLUID:None BONY STRUCTURES: Unremarkable ABDOMINAL WALL: Unremarkable CT/CT abdomen pelvis wo con IMPRESSION: Similar 8 mm left UPJ obstructing stone with developing mild hydronephrosis and mild distal migration. Impression dictated by: Madhav Belcher M.D. 03/08/2025 4:06 PM Dictation Location: [employer] Electronically authenticated by: [id number] Y Date: 03/08/2025 16:06
[2025-03-08] MEDS: TAMSULOSIN HCL 0.4 MG CAPSULE PO (16:39)
[2025-03-08 16:41] VITALS: BP 162/79; PULSE 61; O2SAT 97
[2025-03-08] MEDS: MORPHINE SULFATE 4 MG/ML VIAL IV (17:31)
[2025-03-08 18:00] VITALS: BP 147/82; PULSE 72; O2SAT 99
== END 2025-03-08 18:00 | disposition home or self-care (01) ==
PROVIDERS: Physician Assistant; Emergency Provider Emergency Medicine
DX: N13.2 Hydronephrosis with renal and ureteral calculous obstruction (principal); R10.32 Left lower quadrant pain; R11.2 Nausea with vomiting, unspecified
CPT/HCPCS: 36415; 74176; 80053; 81001; 85025; 87086; 96365; 96375; 99285; J0696; J1885; J2270; J2405

== ENCOUNTER 2025-05-23 13:25 | Emergency (ER) | payer OTHER, SELFPAY ==
--- OUTSIDE RECORDS SUMMARY | 2024-07-13 03:45 | XMS_ITS ---
Author Organization [facility] vices Address [address] [place] [id number] Care Team Providers Care Training Development Director Name Role Phone KayliRonaldo salehyssa Primary Care Provider Justus Davenport [phone] REASON FOR VISIT HTN & Gout Social History Sex Assigned At : Social History Observation Description Sex Assigned At Male Encounters Encounter Location Date Provider Diagnosis [address] [id number] 07/13 Justus Davenport Plan Of Treatment Next Appt Details Provider Name:Anastasia Milan , 05/31/2025 07:15:00 AM, [address] [place], [place], [phone], Provider Name:Anastasia Milan , 07/26/2025 07:15:00 AM, [address], [place], [id number], Progress Notes * KURTJose URENADOB:1959 (65 yo M)Acc No.[id number]:07/13/2024 Medical Note Patient: Jose FARIAS :?MAGDALENA Denis-CDOB:1960???Age:64 Y???Sex: MaleDate:07/13/2024hone:[phone]:[address], [place], [id number]:Anastasia Milan Subjective: * Chief Complaints: * 1 . HTN & Gout. * Medical History: Objective: * Vitals: Assessment: Plan: * Treatment: * Billing Information: * Visit Code: * Procedure Codes: * Electronic signature of MAGDALENA Denis on 05/23/2025 at 01:31 PM EDTSign off status: Pending * Provider: Kofi Davenport PA-C Date: 1 09/13/2023 Generated for Printing/Faxing/eTransmitting on:?05/23/2025 01:31 PM EDT
--- OUTSIDE RECORDS SUMMARY | 2024-07-13 04:15 | XMS_ITS ---
Author Organization [facility] vices Address [address] [place] [id number] Care Team Providers Care Honing Machine Operator Name Role Phone Ronaldo Milanyssa Primary Care Provider [phone] Keli Lawrence [phone] REASON FOR VISIT HTN and GOUT Social History Sex Assigned At : Social History Observation Description Sex Assigned At Male Encounters Encounter Location Date Provider Diagnosis Main [address] [place], [place] [id number] 07/13/2024 Keli Lawrence Plan Of Treatment Next Appt Details Provider Name:Anastasia Milan , 05/31/2025 07:15:00 AM, [address] [place], [place], [phone], Provider Name:Anastasia Milan , 07/26/2025 07:15:00 AM, [address] [place], [place], [id number], Progress Notes * FLORAJoseDOB:1959 (65 yo M)Acc No.[id number]:07/13/2024 Medical Note Patient: Jose FARIAS :?Keli Lawrence NP-CDOB:1960???Age:64 Y ???Sex:MaleDate:4Phone:[phone]:[address], [place], [id number]:Anastasia Milan Subjective: * Chief Complaints: * 1 . HTN and GOUT. * Medical History: Objective: * Vitals: Assessment: Plan: * Treatment: * Billing Information: * Visit Code: * Procedure Codes: * Electronic signature of APPLE Anderson on 05/23/2025 at 01:31 PM EDT Sign off status: Pending * Provider: APPLE Whittington Date: 1 09/13/2023 Generated for Printing/Faxing/eTransmitting on:?05/23/2025 01:31 PM EDT
--- OUTSIDE RECORDS SUMMARY | 2025-05-10 04:00 | XMS_ITS ---
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 Name Role Phone Anastasia Milan Primary Care Provider [phone] Allergies Allergen (clinical drug ingredient) Drug/Non Drug Allergy documented on EMR Reaction Allergy Type Onset Date Status amlodipine amLODIPine leg swelling Drug Allergy ActivelosartanLosartanmuscle spasmsDrug AllergyActive REASON FOR VISIT HTN Medications Medication SIG (Take, Route, Frequency, Duration) Notes Start Date End Date Status Methocarbamol 750 MG 1 tablet Orally every 8 robert rs; Duration: 14 days 5ActiveIbuprofen 800 MG1 tablet with food or milk as needed Orally every 8 hrs; Duration: 30 days5ActiveAllopurinol 300 MG1/2 tablet Orally Once a day; Duration: 90 daysActivehydroCHLOROthiazide 25 MG1 tablet in the morning Orally Once a day; Duration: 30 days5ActiveBenzonatate 200 MG1 capsule as needed Orally Three times a day; Duration: 7 days5Active Lisinopril 40 MG1 tablet Orally Once a day; Duration: 90 daysActivepredniSONE 20 MG1 tablet with food or milk Orally Once a day; Duration: 10 04/19/2025 Active Social History Sex Assigned At : Social History Observation Description Sex Assigned At Male Problems Problem Type SNOMED Code ICD Code Onset Dates Problem Status W/U Status Risk Notes Problem Primary hypertension (51647215) Primary h ypertension (I10) Activeconfirmed Vital Signs Temperature 98.0 degrees Fahrenheit 05/10/20 25 Weight 215 lbs 05/10/2025 Height 65.00 in 05/10/2025 BMI 35.77 kg/m2 05/10/2025 Blood pressure systolic 172 mm Hg 05/10/20 25 Blood pressure diastolic 91 mm Hg Heart Rate 55 /min 05/10/2025 Respiratory Rate 17 /min 05/10/2025 Oximetry 96 % 05/10/2025 Weight-kg 97.52 kg 05/10/2025 Height-cm 165.10 cm 05/10/2025 David Akins 025 07:51:35 AM EDT > Encounters Encounter Location Date Provider Diagnosis Main [address] , [place] [id number] 05/10/2025 Anastasia Milan Primary hypertension I10 ; Obesity, Class II, BMI 35-39.9 E66.812 and BMI 35.0-35.9,adult Z68.35 Assessments Encounter Date Diagnosis (ICD Code) Assessment Notes Treatment Notes Treatment Clinical Notes Section Notes 05/10/2025 Primary hypertension (ICD-10 - I 10) Pt continues to have elevated BP's in office and home. Pt denies symptoms at this time. Pt encouraged to check BP's twice daily at rest; once in the morning upon waking and once before bed. Pt provided w/ a BP log to keep track of BP's at home. Encouraged healthy diet and exercise. Discussed reassuring vs non reassuring signs related to elevated BP and when to RTC or go to the ER. Continue w/ Lisinopril at this time, per pt request; has a known occasional dry cough w/ this. RX sent for HCTZ at this time. F/U 1 month or PRN 05/10/2025Obesity, Class II, BMI 35-39.9 (ICD-10 - E66.812)05/10/2025MI 35.0- 35.9,adult (ICD-10 - Z68.35) Plan Of Treatment Medication Medication Name Sig Start Date Stop Date Notes hydroCHLOROthiazide 25 MG 1 tablet in th e morning Orally Once a day; Duration: 30 days 05/10/2025 Lisinopril 40 MG1 tablet Orally Once a day; Duration: 90 daysTreatment Notes Assessment Notes Primary hypertension Pt continues to have elevated BP's in office and home. Pt denies symptoms at this time. Pt encouraged to check BP's twice daily at rest; once in the morning upon waking and once before bed. Pt provided w/ a BP log to keep track of BP's at home. Encouraged healthy diet and exercise. Discussed reassuring vs non reassuring signs related to elevated BP and when to RTC or go to the ER. Continue w/ Lisinopril at this time, per pt request; has a known occasional dry cough w/ this. RX sent for HCTZ at this time. F/U 1 month or PRN Next Appt Details Follow Up: 1 month HTN, Reas on: Provider Name:Anastasia Milan , 05/31/2025 07:15:00 AM, [address], [place], [id number], Provider Name:Anastasia Milan , 07/26/2025 07:15:00 AM, [address] [place], [id number], Progress Notes * Jose HINESDOB:1959 (64 yo M)Acc No.[id number]:05/10/2025 Medical Note Patient: Jose FARIAS :?Anastasia MilanDOB:1960???Age:64 Y???Sex:Male Date:05/10/2025Phone:[phone]:[id number] In:07:45 AM EST Subjective: * Chief Complaints: * H TN * HPI: ???Interim History:?HYPERTENSION Medication: Lisinopril 40mg 1QD Home BP readings: Pt reports he uses his wrist BP cuff at home, values range from 150's-160's/70's-80's Patient denies headache, vision changes, chest pain, shortness of breath/difficulty breathing, decreased exercise tolerance, dizziness/lightheadedness, syncope/near syncope, orthopnea, fatigue, and sweats. Pt decided to switch back to his Lisinopril, although he gets a dry cough w/ it, d/t being on it for many years. Pt felt like his Carvedilol did not work for him and D/C'd it on his own. * ROS: ???Negative except mentioned above in the HPI. * Medical History: * Surgical History: L eft and right knee kidney stone removal 02/2025 * Hospitalization/Major Diagno stic Procedure: [facility] 12/30/2024 * Family History: F ather: , cirrhosis of liver. M other: , stroke. P aternal Grand Father: . P aternal Grand Mother: . M aternal Grand Father: . M aternal Grand Mother: . B rother: alive. S ister: alive, diagnosed with Hypertension.?1 [...] milk as needed Orally every 8 hrs predniSONE 20 MG Tablet 1 tablet with food or milk Orally Once a day Lisinopril 40 MG Tablet 1 tablet Orally Once a day Medication List reviewed and reconciled with the patientTaking Benzonatate 200 MG Capsule 1 capsule as needed Orally Three times a day Taking Allopurinol 300 MG Tablet 1/2 tablet Orally Once a day Taking Methocarbamol 750 MG Tablet 1 tablet Orally every 8 hours Taking Ibuprofen 800 MG Tablet 1 tablet with food or milk as needed Orally every 8 hrs Taking predniSONE 20 MG Tablet 1 tablet with food or milk Orally Once a day Taking Lisinopril 40 MG Tablet 1 tablet Orally Once a day Medication List reviewed and reconciled with the patient * Allergies: L osartan: muscle spasms - AllergyamLODIPine: leg swelling - Allergyno[Allergies Verified] Objective: * Vitals: T emp:98.0F, Wt:215lbs, Ht: 65.00 in, BMI:35.77Index, BP: 184/79 mm Hg,172/91mm Hg, HR:55/min, RR:17/min, Pain scale:01-10, Oxygen sat %:96%, Wt-k.52 kg, Ht- cm: 165.10 cm, Body Surface Area: 2.11. David Akins 05/10/2025 07:51:35 AM EDT >. * Examination: ???General Examination: ?General appearance:?alert, pleasant, well-nourished and inno acute distress.?Head:?normocephalic, atraumatic.?Heart:?regular rate and rhythm without murmurs, gallops, clicks or rubs.?Lungs:?clear to auscultation bilaterally, with good air movement and no rales, rhonchi or wheezes.?Psych:?alert and oriented x 3 , cooperative with exam, normal affect / mood , speech is clear and coherent.? Assessment: * Assessment: 1.?Primary hypertension - I10 (Primary)???2.?Obesity, Class II, BMI 35-39.9 - E66.812???3.?BMI 35.0-35.9,adult - Z68.35??? Plan: * Treatment: Refill Lisinopril Tablet, 40 MG, 1 tablet, Orally, Once a day, 90 days, 90 Tablet, Refills 1;?Start hydroCHLOROthiazide Tablet, 25 MG, 1 tablet in the morning, Orally, Once a day, 30 days, 30, Refills 1.?? Notes: Pt continues to have elevated BP's in office and home. Pt denies symptoms at this time. Pt encouraged to check BP's twice daily at rest; once in the morning upon waking and once before bed. Pt provided w/ a BP log to keep track of BP's at home. Encouraged healthy diet and exercise. Discussed reassuring vs non reassuring signs related to elevated BP and when to RTC or go to the ER. Continue w/ Lisinopril at this time, per pt request; has a known occasional dry cough w/ this. RX sent for HCTZ at this time. F/U 1 month or PRN?? * Procedure Codes: 3 077F HTN SYST BP >= 9518880N HTN DIAST BP >= 90 * Preventive Medicine: ??Counseling:?Communication to patient:?Counseling for nutrition provided?Yes ?Counseling for physical activity provided?Yes * Follow Up: 1 month HTN * Billing Information: * Visit Code: 01948 Office Visit Est 20-29 minutes. * Procedure Codes: 3077F HTN SYST BP >= 140. 3080F HTN DIAST BP >= 90. * Sign off status: Completed true * Provider: Monty Milan Date: Generated for Printing/FaQuackenworthg/eTransmitting on:?05/23/2025 01:31 PM EDT History and Physical Notes * Examination CategorySub-CategoryDetailNotesCategory NotesGeneral ExaminationGeneral appearance:alert, pleasant, well-nourished and in no acute distressHead: normocephalic, atraumaticHeart:regular rate and rhythm without murmurs, gallops, clicks or rubsLungs:clear to auscultation bilaterally, with good air movement and no rales, rhonchi or wheezesPsych:alert and oriented x 3 , cooperative with exam, normal affect / mood , speech is clear and coherent
[2025-05-23] VITALS (20 sets, daily range): BP systolic 89–123; BP diastolic 59–69; PULSE 74–112; O2SAT 75–100; BMI 30.4
--- OUTSIDE RECORDS SUMMARY | 2025-05-23 13:31 | XMS_ITS | CCD ---
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 Name Role Phone ZEYAD DE LA TORRE Admitting Unavailable ZEYAD DE LA TORRE Attending Unavailable CAITLIN ., ESSIE Consulting Unavailable JEEVAN SALAS Consulting Unavailable PAY ., DR PAUL Consulting Unavailable PAY ., DR PAUL Admitting Unavailable PAY ., DR PAUL Attending Unavailable DONNA DOMINGUEZ Admitting Unavailable DONNA DOMINGUEZ Attending Unavailable [facility], DR CHINCHILLA Primary Care Unavailable DONNA DOMINGUEZ Consulting Unavailable CYNTHIA RESENDIZ Consulting Unavailable GLADYS BOSWELL Referring Unavailable NO PCP, NO PCP Primary Care Unavailable EVE BLACKMON Referring Unavailable Beverly De La Torre DO Attending Provider [facility] Primary Care Physician [phone] Lee BAKER Admitting Unavailable LORRI, EVE Primary Care Unavailable Lee BAKER Referring Unavailable Lee BAKER Attending Unavailable LORRI, EVE Primary Care Unavailable Lee BAKER Attending Unavailable Beverly De La Torre Admitting Unavailable Beverly De La Torre Attending Unavailable Beverly De La Torre Attending Unavailable Beverly De La Torre Admitting Unavailable Alexander BAKERory P Admitting Unavailable Lee BAKER P Attending Unavailable Lee BAKER P Referring Unavailable LORRI, EVE Primary Care Unavailable Lee BAKER P Admitting Unavailable Lee BAKER P Attending Unavailable Lee BAKER P Referring Unavailable LORRI, EVE Primary Care Unavailable Allergies Allergy ClassificationReported Allergen(s)Allergy TypeDate of OnsetReaction(s) Facility (2 sources)No Known Medication Allergies; Translations: [No Known Medication Allergies]Propensity to adverse reactions (disorder)[facility] Repository Medications Current Medications MedicationDrug Class(es)DatesSig (Normalized)Sig (Original)acetaminophen 325 mg / oxyCODONE hydrochloride 5 mg oral tablet (1 source)Opioid AgonistStart: 54-78-8425ojpv 1 tablet by mouth every six hours acetaminophen-oxycodone 325 mg-5 mg Tab 1 tab(s), Oral, q6hr, Refill(s) 0, Pain Start Date: 03/10/25Status: Ordered Repeat number: 1ketorolac tromethamine 10 mg oral tablet (1 source)Nonsteroidal Anti-inflammatory Drug, Cyclooxygenase InhibitorStart: 59-36-8636womm 1 tablet by mouth every four hours as needed for painketorolac 10 mg Tab 10 mg = 1 tab(s), Oral, q4hr, PRN for pain Start Date: 03/10/25 Status: Ordered Repeat number: 1tamsulosin hydrochloride 0.4 mg oral capsule (1 source)alpha-Adrenergic BlockerStart: 97-88-8701zrsm 1 capsule by mouth once dailytamsulosin 0.4 mg Cap 0.4 mg = 1 cap(s), Oral, Daily, Refills(s) 0, Urinary discomfort Start Date: 03/10/25 Status: Ordered Repeat number: 1 Problems Active Problems Problem ClassificationProblemDateDocumented DateEpisodic/ChronicCalculus of urinary tract (2 sources)Kidney stone; Translations: [Calculus of kidney]Onset: 03-10-2025 EpisodicConditions associated with dizziness or vertigo (4 sources)Dizziness and giddiness; Translations: [DIZZINESS AND GIDDINESS] Onset: 96-76-1444QzsbxbgqPyqbtlgsd hypertension (2 sources)Essential (primary) hypertension; Translations: [Hypertensive disorder]Onset: [id number]l symptoms and ill- defined conditions (2 sources)History of urinary tract infection; Translations: [Personal history of urinary (tract) infections]Onset: 74-35-1084XnsvonuwGqoa and other crystal arthropathies (1 source)Dyou91-80-3014FbjsnhlRlwcklilopevhj (1 source)Rerasixqm24-16-3284UyjbbzmNwopz aftercare (1 source)Other intermediate (current) drug therapy; Translations: [OTH FLOORHAND CURRENT DRUG THERAPY]Onset: 00-67-7037PagvcxvwWsjwl bone disease and musculoskeletal deformities (1 source)Other specified disorders of bone, shoulder; Translations: [Other specified disorders of bone, shoulder]Onset: 79-72-7953CnpxiqrcLtckz connective tissue disease (1 source)Myalgia, unspecified site; Translations: [MYALGIA UNSPECIFIED SITE] Onset: 50-49-9959GgeuirjbBdqoo diseases of kidney and ureters (1 source)Urinary tract obstruction; Translations: [Hydronephrosis with renal and ureteral calculous obstruction]Onset: 32-23-0320QeraumssQxkzt non-traumatic joint disorders (1 source)Pain in unspecified joint; Translations: [PAIN IN UNSPECIFIED JOINT] Onset: 52-12-2850DyksvogyAiryj non-traumatic joint disorders (1 source)Pain in right shoulder; Translations: [Pain in right shoulder]Onset: 81-50-5628QphjkfcmBcbdy upper respiratory disease (1 source)Other specified disorders of nose and nasal sinuses; Translations: [OTH SPEC D/O NOSE NASAL SINUSES]Onset: 42-59-1679NnfvwpriBvmhjw media and related conditions (1 source)Otitis media, unspecified, right ear; Translations: [OTITIS MEDIA UNSPECIFIED RIGHT EAR]Onset: 27-29-4676YrvqmgupFlwlnnfoptz; intervertebral disc disorders; other back problems (1 source)Pain in thoracic spine; Translations: [PAIN IN THORACIC SPINE]Onset: 91-85-1983RtkoqloqFedbtmlnpzbm (3 sources)COUGH, UNSPECIFIED; Translations: [COUGH, UNSPECIFIED]Onset: 83-88-7781Kiisgphbukib (1 source)CONTACT W/AND (SUSP) EXPOS COVID-19; Translations: [CONTACT W/AND (SUSP) EXPOS COVID-19]Onset: 97-98-8255Zqovhbdmxrzl (1 source)Obstructive jlbjufqqgoumto35-87-3879 Past or Other Problems Problem ClassificationProblemDateDocumented DateEpisodic/ChronicE Codes: Natural/environment (1 source)Other and unspecified overexertion or strenuous movements or postures, initial encounter; Translations: [OTH AND UNS OVREXRT/STRN MVMT/POS INT]Onset: 87-12-8067HaxklgnfU Codes: Unspecified (1 source)Activity, running; Translations: [ACTIVITY RUNNING]Onset: 10-18-2021 EpisodicOther non-traumatic joint disorders (3 sources)Pain in left knee; Translations: [PAIN IN LEFT KNEE]Onset: 10-16-2021 EpisodicSprains and strains (1 source)Sprain of unspecified site of left knee, initial encounter; Translations: [SPRAIN UNS SITE LT KNEE INITIAL]Onset: 79-09-0092Cjtffqys Unclassified (1 source)COUGH, UNSPECIFIED; Translations: [COUGH, UNSPECIFIED]Onset: 07-02-2022 Results Test NameValueInterpretationReference RangeFacilityDischarge Instructionson 30-82-8800Nbtqgzjmo InstructionsDischarge Instructions BISHNU ROLON :1960 Visit Date:03/11/2025 Inpatient Discharge Instructions Your Care Team Admitting Physician - Lee BAKER MD Referring Physician - Lee BAKER MD Reason for Your Visit LEFT KIDNEY STONE Tests Performed XR Abdomen 1 View This Is Your Medications List acetaminophen-oxycodone (acetaminophen-oxycodone 325 mg-5 mg Tab) ketorolac (ketorolac 10 mg Tab) tamsulosin (tamsulosin 0.4 mg Cap) Procedure History Arthroscopy of knee. Discharge Vitals Temperature (Oral) 36.4 ???C Heart Rate (Monitored) 66 Respiratory Rate 20 Blood Pressure 160/84 What to do next Instructions From Your Doctor Event Name Event Result Discharge Instructions Freetext Discharge Instructions Freetext Discharge Instructions Discharge Instructions New Follow Up Appointments after Discharge Follow Up with Lee BAKER When: Comments: As we discussed, the possibility that you have passed the stone is certainly present. The other possibility is that the stone is still there and simply not causing pain at the current time. Regardless we will cancel today's procedure and with plans for a follow-up in the office in about 3months or so with a renal ultrasound prior. This can be with one of our nurse practitioners. At that visit you can have a discussion about whatis called a metabolic workup. This would consist of a 24- hour urine collection and blood work at the same time in an attempt to determine why you are making stones. Push the fluids and have a great day. Where: [address] [address] [facility] (1) Medications What How Much When Instructions Next Dose Unchanged acetaminophen-oxycodone (acetaminophen-oxycodone 325 mg-5 mg Tab) 1 Tablets By Mouth Every 6 hours Unchanged ketorolac (ketorolac 10 mg Tab) 1 Tablets By Mouth Every 4 hours as needed for for pain Unchanged tamsulosin (tamsulosin 0.4 mg Cap) 1 Capsules By Mouth Every day Test Results No qualifying data available. Allergies No Known Medication Allergies Problems Ongoing - Any problem that you are currently receiving treatment for. Arthritis History of UTI Hypertension Kidney stone Ureteral stone with hydronephrosis Historical - Any problem that you are no longer receiving treatment for. Gout Common Emergency Awareness Tips IS IT A STROKE? Act FAST and Check for these signs: FACE Does the face look uneven? ARM Does one arm drift down? SPEECH Does their speech sound strange? TIME Call at any sign of stroke Heart Attack Signs Chest discomfort: Most heart attacks involve discomfort in the center of the chest and lasts more than a few minutes, or goes away and comes back. It can feel like uncomfortable pressure, squeezing, fullness or pain. Discomfort in upper body: Symptoms can include pain or discomfort in one or both arms, back, neck, jaw or stomach. Shortness of breath: With or without discomfort. Other signs: Breaking out in a cold sweat, nausea, or lightheaded. Remember, MINUTES DO MATTER. If you experience any of these heart attack warning signs, call to get immediate medical attention! Patient Survey You may receive a survey in the mail asking you about your stay with us. We want to hear from you, please share your experience with us by completing your survey. Thank you for choosing [facility]. Leslie Award Nomination The LESLIE (Diseases Attacking the Immune SYstem) Award is an international recognition program thathonors and celebrates the skillful, compassionate care nurses provide every day. Anyone who experiences or observes amazing care being provided by a nurse is encouraged to submit a nomination. To nominate your nurse, use your smart phone to scan the QR code below. Patient Portal You may access all of your results and other medical record information on our secure patient portal. If you are not signed up for this yet, please contact Health Information Management at [phone] to get signed up today. Language Information Language assistance services are available as needed. Patient Name: BISHNU ROLON I have received these discharge instructions and my questions have been answered. Patient/Clerical Dentist Assistant Name: Patient/Clerical Dentist Assistant Signature: Relationship to Patient: Witness Name/Signature: Date: [facility] HospitalComment on above:Result Comment: Electronically Signed By: John MARTINEZ, Korin Nowak\Date and Time Signed: 03/11/25 10:03 EDTH&P Updateon 03-11-2025H&P UpdateH&P Update Patient: BISHNU ROLON Age: 64 years Sex: Male : 1960 Associated Diagnoses: None Author: SAMUEL OLVERA, Lee Worley Basic Information Summary: The patient presents for cystoscopy, left double-J ureteral stent placement, ESWL of an 8 mm left upper ureteral calculus. The patient's KUB from today is currently pending at the time of this dictation. Should the stone have traveled distally we may have to consider a retrograde approach with ureteroscopy and laser ablation.. The patient is aware of the possibility of staged procedure. He also is aware the risk benefits anddetails of both procedures including risk of bleeding, infection, need for additional intervention,stent pain and irritation, heart and lung problems under anesthesia. He wishes to proceed. Full informed consent as part of the record.. Health Status Procedure history: Arthroscopy of R/L knee with ACL repair ([id number]). Social History Social & Psychosocial Habits Tobacco 03/10/2025 Tobacco Use: Never (less than 100 in l Smokeless tobacco use: Never . Allergies: Allergic Reactions (Selected) No Known Medication Allergies, Allergies (1) Active Severity Reaction No Known Medication Allergies None Documented Current medications: (Selected) Inpatient Medications Ordered Lactated Ringers IV Cori 1000 mL 1,000 mL: 1,000 mL, IV, 150 mL/hr, Routine, Start date 03/11/25 8:15:00 EDT, 6.7 hour(s), Total volume (mL): 1,000, 99.3 kg, 2.16, m2 gentamicin additive + Sodium Chloride 0.9% intravenous solution 50 mL: 80 mg = 50 mL, Soln-IV, IV Piggyback, PREOP, Routine, Start date 03/11/25 8:15:00 EDT, 100 mL/hr, Infuse over 30 minute(s) Documented Medications Documented acetaminophen-oxycodone 325 mg-5 mg Tab: 1 tab(s), Oral, q6hr, Refill(s) 0, Pain ketorolac 10 mg Tab: 10 mg = 1 tab(s), Oral, q4hr, PRN for pain tamsulosin 0.4 mg Cap: 0.4 mg = 1 cap(s), Oral, Daily, Refills(s) 0, Urinary discomfort, Home Medications (3) Active acetaminophen-oxycodone 325 mg-5 mg Tab 1 tab(s), Oral, q6hr ketorolac 10 mg Tab 10 mg = 1 tab(s), PRN, Oral, q4hr tamsulosin 0.4 mg Cap 0.4 mg = 1 cap(s), Oral, Daily Problem list: All Problems Ureteral stone with hydronephrosis / SNOMED CT 6852209374 / Confirmed Kidney stone / SNOMED CT 276611629 / Confirmed History of UTI / SNOMED CT 5083447753 / Confirmed Arthritis / SNOMED CT 9706668 / Confirmed Hypertension / SNOMED CT 6112892681 / Confirmed Resolved: Gout / SNOMED CT 601134010, Active Problems (5) Arthritis History of UTI Hypertension Kidney stone Ureteral stone with hydronephrosisMagruder Memorial HospitalComment on above:Result Comment: Electronically Signed By: Lee BAKER MD\.br\Date and Time Signed: 03/11/25 07:31 EDTInpatient Patient Summaryon [id number] Patient SummaryInpatient Patient Summary [address] [address] [facility] Clinical Discharge Instructions PERSON INFORMATION Name: BISHNU ROLON PHYSICIANS Admitting Physician: Lee BAKER MD Attending Physician: Lee BAKER MD PCP: EVE BLACKMON Discharge Diagnosis: Comment: PATIENT EDUCATION INFORMATION Instructions: Medication Leaflets: Follow up: With: Address: When: Lee BAKER [address] [place] [address], [address], [place] [id number] Business (1) Comments: As we discussed, the possibility that you have passed the stone is certainly present. The other possibility is that the stone is still there and simply not causing pain at the current time. Regardless we will cancel today's procedure and with plans for a follow-up in the office in about 3months or so with a renal ultrasound prior. This can be with one of our nurse practitioners. At that visit you can have a discussion about whatis called a metabolic workup. This would consist of a 24- hour urine collection and blood work at the same time in an attempt to determine why you are making stones. Push the fluids and have a great day. MEDICATION LIST Medications to Continue with No Changes Other Medications acetaminophen-oxycodone (acetaminophen-oxycodone 325 mg-5 mg Tab) 1 Tablets By Mouth every 6 hours. ketorolac (ketorolac 10 mg Tab) 1 Tablets By Mouth every 4 hours as needed for pain. tamsulosin (tamsulosin 0.4 mg Cap) 1 Capsules By Mouth every day. Comment:[facility] HospitalOutpatient Surgery Discharge Instructionon [id number] Surgery Discharge InstructionOutpatient Surgery Discharge Instruction [address] [address] Patient Discharge Instructions PERSON INFORMATION Name: BISHNU ROLON Date of : 1960 Current Date: 03/11/2025 09:59:17 PHYSICIANS Admitting Physician: Lee BAKER MD Discharge Diagnosis: BISHNU ROLON has been given the following list of follow-up instructions, prescriptions, and patient education materials: IF UNABLE TO CONTACT YOUR PHYSICIAN AND YOU FEEL IT IS AN EMERGENCY, GO TO THE NEAREST EMERGENCY ROOM OR CALL 911 GONZALES Blue ALEXANDER R, have received the attached patient education materials/instructions and have verbalized understanding: May we do a follow up call? Yes No I was present when discharge instructions were given Patient Signature Date Clinican/Nurse Signature Date Follow up: With: Address: When: Lee BAKER [address] [place] [address], [facility] [address], [address] [address] Business (1) Comments: As we discussed, the possibility that you have passed the stone is certainly present. The other possibility is that the stone is still there and simply not causing pain at the current time. Regardless we will cancel today's procedure and with plans for a follow-up in the office in about 3months or so with a renal ultrasound prior. This can be with one of our nurse practitioners. At that visit you can have a discussion about whatis called a metabolic workup. This would consist of a 24- hour urine collection and blood work at the same time in an attempt to determine why you are making stones. Push the fluids and have a great day. Pharmacy Information: You may receive a survey from [facility]ee asking you to rate your care experience. Your feedback is important and will help us understand what we do well and how we can improve the quality of care we provide to you, your loved ones and our community. It???s an honor to serve you. Thank you for choosing [facility] HERE ARE THE MEDICATION CHANGES THAT OCCURRED DURING YOUR HOSPITAL STAY Medications to Continue with No Changes Other Medications acetaminophen-oxycodone (acetaminophen-oxycodone 325 mg-5 mg Tab) 1 Tablets By Mouth every 6 hours. ketorolac (ketorolac 10 mg Tab) 1 Tablets By Mouth every 4 hours as needed for pain. tamsulosin (tamsulosin 0.4 mg Cap) 1 Capsules By Mouth every day. PATIENT EDUCATION INFORMATION Instructions: Medication Leaflets:[facility] HospitalPatient Education - Texton [id number] Education - TextPatient Education - TextNoSt. Francis HospitalXR Abdomen 1 Viewon [id number] Abdomen 1 ViewExam Date/Time: 03/11/2025 08:19 EDT Reason for Exam: Kidney stone Report IMPRESSION: NO URINARY TRACT CALCULI IDENTIFIED BY RADIOGRAPHY. EXAMINATION: XR Abdomen 1 View HISTORY: Kidney stones TECHNIQUE: Frontal view of the abdomen and pelvis COMPARISON: None available FINDINGS: No calcifications identified over the bilateral renal shadows or expected course of the ureters. Nonobstructive bowel gas pattern. No evidence of free air. Degenerative changes of the spine and both hips. No acute osseous abnormality. Ordering Provider: Lee BAKER FINAL REPORT Dictated: 03/11/2025 9:55 am Fortino Rivers DO Signed (Electronic Signature): 03/11/2025 9:55 am Signed by: Fortino Rivers DO Transcribed by: FERDINAND Technologist: [facility] HospitalAmbulatory Visit Summaryon [id number] Visit SummaryAmbulatory Visit Summary BISHNU ROLON :1960 Visit Date:03/10/2025 Ambulatory Visit Instructions Your Diagnosis Ureteral stone with hydronephrosis Kidney stone History of UTI Your Care Team Attending Physician - Lee BAKER MD Primary Care Physician - EVE BLACKMON This Is Your Medications List Contact prescribing physician if questions or concerns acetaminophen-oxycodone (acetaminophen-oxycodone 325 mg-5 mg Tab) amlodipine (amLODIPine 5 mg Tab) tamsulosin (tamsulosin 0.4 mg Cap) Discharge Vitals Heart Rate (Peripheral) 72 Blood Pressure 147/88 Height 174 cm Height 69 in Weight 99.3 kg Weight 218.919 lb BMI 32.8 What to do next Scheduled Follow-Up Appointments Saturday 10:30 AM EDT Where: [facility] 2024 12:30 PM EDT Where: [facility] You Need to Schedule the Following Appointments Follow Up with Lee BAKER MD, URL When: Where: [address] [place] [address] [place] [phone]- Medications What When Instructions Unchanged acetaminophen-oxycodone (acetaminophen-oxycodone 325 mg-5 mg Tab) Contact prescribing physician if questions or concerns Unchanged amlodipine (amLODIPine 5 mg Tab) Contact prescribing physician if questions or concerns Unchanged tamsulosin (tamsulosin 0.4 mg Cap) Contact prescribing physician if questions or concerns Allergies No Known Medication Allergies Problems Ongoing - Any problem that you are currently receiving treatment for. Arthritis Gout History of UTI Hypertension Kidney stone Ureteral stone with hydronephrosis Patient Survey You may receive a survey via text or e-mail asking about your office visit. Please share your experience with us by completing your survey. We appreciate your feedback and thank you for choosing us for your care. Education Materials ESWL for Kidney Stones Extracorporeal shock wave lithotripsy (ESWL) is a treatment that can help break up kidney stones that are too large to pass on their own. This is a nonsurgical procedure that breaks up a kidney stone with shock waves. These shock waves pass through your body and focus on the kidney stone. They cause the kidney stone to break into smaller pieces (fragments) while it is still in the urinary tract. The fragments of stone can pass more easily out of your body in the urine. Tell a health care provider about: ??? Any allergies you have. ??? All medicines you are taking, including vitamins, herbs, eye drops, creams, and iqjl-ddm-epxteng medicines. ??? Any problems you or family members have had with anesthetic medicines. ??? Any bleeding problems you have. ??? Any surgeries you have had. ??? Any medical conditions you have. ??? Whether you are or may be . What are the risks? Your health care provider will talk with you about risks. These may include: ??? Infection. ??? Bleeding from the kidney. ??? Bruising of the kidney or skin. ??? Scarring of the kidney. This can lead to: ? Increased blood pressure. ? Poor kidney function. ? Return (recurrence) of kidney stones. ??? Damage to other structures or organs. This may include the liver, colon, spleen, or pancreas. ??? Blockage (obstruction) of the tube that carries urine from the kidney to the bladder (ureter). ??? Failure of the kidney stone to break into fragments. What happens before the procedure? When to stop eating and drinking Follow instructions from your health care provider about what you may eat and drink. These may include: ??? 8 hours before your procedure ? Stop eating most foods. Do not eat meat, fried foods, or fatty foods. ? Eat only light foods, such as toast or crackers. ? All liquids are okay except energy drinks and alcohol. ??? 6 hours before your procedure ? Stop eating. ? Drink only clear liquids, such as water, clear fruit juice, black coffee, plain tea, and sports drinks. ? Do not drink energy drinks or alcohol. ??? 2 hours before your procedure ? Stop drinking all liquids. ? You may be allowed to take medicines with small sips of water. If you do not follow your health care provider's instructions, your procedure may be delayed or canceled. Medicines Ask your health care provider about: ??? Changing or stopping your regular medicines. These include any diabetes medicines or blood thinnersyou take. ??? Taking medicines such as aspirin and ibuprofen. These medicines can thin your blood. Do not take them unless your health care provider tells you to. ??? Taking vjlm-ehm-rcvcjjz medicines, vitamins, herbs, and supplements. Tests You may have tests, such as: ??? Blood tests. ??? Urine tests. ??? Imaging tests. This may include a CT scan. Surgery safety Ask your health (more content not included)...NormalThe [facility] BMPon 72-92-5081Wgvwb gap [Moles/Vol]10 mmol/LNormal6-16The [facility] CenterComment on above:Performed By: #### [id number] #### [facility] [address] [place], [place] [address]YYK/Creat Ratio11 No HztaxTupuzu68-92RpbqwjThe University Of Toledo Medical CenterComment on above:Performed By: #### [id number] #### [facility] [address] [place], [place] [address]Gvzpgjh [Mass/Vol]8.4 mg/dLLow8.9-11.1Fisher The [facility]noch Pratt HospitalComment on above:Performed By: #### [id number] #### [facility] [address] [place], [place] [address]Wqcoqbqf [Moles/Vol]101 mmol/VVaotyk096-099GhsnqqThe University Of Toledo Medical CenterComment on above:Performed By: #### [id number] #### [facility] [address] [place], [place] [address]OP9 [Moles/Vol]28 mmol/EFgsuqg17-98SrtwgcThe [facility] Of [facility] Comment on above:Performed By: #### [id number] #### [facility] [address] [place], [place] [address]Aootgghjcz [Mass/Vol]1.4 mg/dLHigh0.5-1.3FElyria Memorial HospitalComment on above:Performed By: #### [id number] #### [facility] [address], [place] [address]Sgwnqgm [Mass/Vol]100 mg/jXPmvlsz72-696MmihahThe University Of Toledo Medical CenterComment on above:Performed By: #### [id number] #### [facility] [address], [place] [address]Exzmdgxlv [Moles/Vol]3.6 mmol/LNormal3.5-5.3FElyria Memorial HospitalComment on above:Performed By: #### [id number] #### [facility] [address] [place] [address]Qgslik [Moles/Vol]135 mmol/DRailij908-579RaahneThe University Of Toledo Medical CenterComment on above:Performed By: #### [id number] #### [facility] [address] [place] [address]Ptnb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 NoteProgress Note-Physician Patient: BISHNU ROLON Age: 64 years Sex: Male : 1960 Associated Diagnoses: None Author: SAMUEL OLVERA, Lee Worley Subjective Chief complaint 03/10/2025 9:11 EDT new patient-kidney stone . Health Status Allergies: Allergic Reactions (Selected) No Known Medication Allergies Current medications: Home Medications (3) Active acetaminophen-oxycodone 325 mg-5 mg Tab 1 tab(s), Oral, q6hr ketorolac 10 mg Tab 10 mg = 1 tab(s), PRN, Oral, q4hr tamsulosin 0.4 mg Cap 0.4 mg = 1 cap(s), Oral, Daily Problem list: All Problems Ureteral stone with hydronephrosis / SNOMED CT 3223514152 / Confirmed Kidney stone / SNOMED CT 198275347 / Confirmed History of UTI / SNOMED CT 7467188531 / Confirmed Arthritis / SNOMED CT 4433641 / Confirmed Hypertension / SNOMED CT 8772677159 / Confirmed Objective Vital Signs 03/11/2025 8:22 EDT Heart Rate Monitored 66 bpm Systolic Blood Pressure 160 mmHg HI Diastolic Blood Pressure 84 mmHg Mean Arterial Pressure, Cuff 109 mmHg 03/11/2025 8:22 EDT Blood Pressure Location Left arm 03/11/2025 8:21 EDT Heart Rate Monitored 68 bpm SpO2 97 % 03/11/2025 8:21 EDT Respiratory Rate 20 br/min 03/11/2025 8:21 EDT Temperature Oral 36.4 DegC 03/11/2025 8:20 EDT Systolic Blood Pressure 168 mmHg HI Diastolic Blood Pressure 77 mmHg Mean Arterial Pressure, Cuff 108 mmHg 03/11/2025 8:07 EDT Blood Pressure Location Right arm 03/10/2025 9:11 EDT Peripheral Pulse Rate 72 bpm Systolic Blood Pressure 147 mmHg HI Diastolic Blood Pressure 88 mmHg Blood Pressure Location Left arm Measurements from flowsheet : Measurements 03/10/2025 10:08 EDT Height/Length Measured 169 cm Height/Length Dosing 169.0 cm Weight Dosing 99.3 kg BSA Measured 2.16 m2 Body Mass Index Measured 34.77 kg/m2 Weight Measured 99.3 kg 03/10/2025 9:39 EDT Weight Dosing 99.3 kg 03/10/2025 9:39 EDT Height/Length Dosing 174.0 cm 03/10/2025 9:11 EDT Height/Length Measured 174 cm Height/Length Dosing 174.0 cm Weight Dosing 99.3 kg Body Mass Index Measured 32.8 kg/m2 Weight Measured 99.3 kg Weight in Pounds 218.919 lb Height in Inches 69 in Impression and Plan Assessment and Plan: Course: This patient was scheduled for the cystoscopy, left stent, and ESWL. He has had no pain for several hours. I had given him a urine strainer in the office yesterday. Unfortunately 1 large urination in the middle of the night occurred and he did not strain. He is aware of the possibility that the stone is still there and simply not causing pain and this could recur at any point. The other possibility is that he passed a stone and unfortunately we did not catch it. Either way he wants the case canceled. Plan will be follow-up in 6 months with a renal ultrasound. He does have a history of gout and the fact that I could not see a stone on today's KUB, raises the possibility that this is a uric acid stone. He agrees with that plan..[facility] CenterComment on above:Result Comment: Electronically Signed By: SAMUEL OLVERA, Lee Marr.br\Date and Time Signed: 03/11/25 09:55 EDT Hospital Discharge instructions 03-10-2025 Note Date & QyplHsdkBtswvgnp27-15-3784 Hospital Discharge instructions Patient Education 03/10/2025 09:21:54 ESWL for Kidney Stones ESWL for Kidney Stones Extracorporeal shock wave lithotripsy (ESWL) is a treatment that can help break up kidney stones that are too large to pass on their own. This is a nonsurgical procedure that breaks up a kidney stone with shock waves. These shock waves pass through your body and focus on the kidney stone. They cause the kidney stone to break into smaller pieces (fragments) while it is still in the urinary tract. The fragments of stone can pass more easily out of your body in the urine. Tell a health care provider about: Any allergies you have. All medicines you are taking, including vitamins, herbs, eye drops, creams, and xuov-zsz-fvoiqgz medicines. Any problems you or family members have had with anesthetic medicines. Any bleeding problems you have. Any surgeries you have had. Any medical conditions you have. Whether you are or may be . What are the risks? Your health care provider will talk with you about risks. These may include: Infection. Bleeding from the kidney. Bruising of the kidney or skin. Scarring of the kidney. This can lead to: ?Increased blood pressure. ?Poor kidney function. ?Return (recurrence) of kidney stones. Damage to other structures or organs. This may include the liver, colon, spleen, or pancreas. Blockage (obstruction) of the tube that carries urine from the kidney to the bladder (ureter). Failure of the kidney stone to break into fragments. What happens before the procedure? When to stop eating and drinking Follow instructions from your health care provider about what you may eat and drink. These may include: 8 hours before your procedure ?Stop eating most foods. Do not eat meat, fried foods, or fatty foods. ?Eat only light foods, such as toast or crackers. ?All liquids are okay except energy drinks and alcohol. 6 hours before your procedure ?Stop eating. ?Drink only clear liquids, such as water, clear fruit juice, black coffee, plain tea, and sports drinks. ?Do not drink energy drinks or alcohol. 2 hours before your procedure ?Stop drinking all liquids. ?You may be allowed to take medicines with small sips of water. If you do not follow your health care provider's instructions, your procedure may be delayed or canceled. Medicines Ask your health care provider about: Changing or stopping your regular medicines. These include any diabetes medicines or blood thinnersyou take. Taking medicines such as aspirin and ibuprofen. These medicines can thin your blood. Do not take them unless your health care provider tells you to. Taking kqzj-xoq-hotkdsv medicines, vitamins, herbs, and supplements. Tests You may have tests, such as: Blood tests. Urine tests. Imaging tests. This may include a CT scan. Surgery safety Ask your health care provider: How your surgery site will be marked. What steps will be taken to help prevent infection. These steps may include: ?Washing skin with a soap that kills germs. ?Receiving antibiotics. General instructions If you will be going home right after the procedure, plan to have a responsible adult: ?Take you home from the hospital or clinic. You will not be allowed to drive. ?Care for you for the time you are told. What happens during the procedure? An IV will be inserted into one of your veins. You may be given: ?A sedative. This helps you relax. ?Anesthesia. This will: ?Numb certain areas of your body. ?Make you fall asleep for surgery. A water-filled cushion may be placed behind your kidney or on your abdomen. In some cases, you may be placed in a tub of lukewarm water. Your body will be positioned in a way that makes it easier to target the kidney stone. An X-ray or ultrasound exam will be done to locate your stone. Shock waves will be aimed at the stone. If you are awake, you may feel a tapping sensation as the shock waves pass through your body. A small mesh tube (stent) may be placed in your ureter. This will help keep urine flowing from the kidney if the fragments of the stone have been blocking the ureter. The stent will be removed at a later time by your health care provider. The procedure may vary among health care providers and hospitals. What happens after the procedure? Your blood pressure, heart rate, breathing rate, and blood oxygen level will be monitored until youleave the hospital or clinic. You may have an X-ray after the procedure to see how many of the kidney stones were broken up. Thiswill also show how much of the stone has passed. If there are still large fragments after treatment, you may need to have a second procedure at a later time. This information is not intended to replace advice given to you by your health care provider. Make sure you discuss any questions you have with your health care provider. Document Revised: 11/15/2022 Document Reviewed: 11/15/2022 [email or web address] Patient Education 2023 [employer]. Follow Up Care 03/09/2025 14:57:06 With:SAMUEL OLVERA, Lee Worley, URL Address: [address] [place] [address]- When: Unknown [facility] Clinical Note 03-10-2025 Note Date & BjebMxvkLttckcgg65-06-0915 NotePatient Education Nephrology ESWL for Kidney Stones Extracorporeal shock wave lithotripsy (ESWL) is a treatment that can help break up kidney stones that are too large to pass on their own. This is a nonsurgical procedure that breaks up a kidney stone with shock waves. These shock waves pass through your body and focus on the kidney stone. They cause the kidney stone to break into smaller pieces (fragments) while it is still in the urinary tract. The fragments of stone can pass more easily out of your body in the urine. Tell a health care provider about: ??? Any allergies you have. ??? All medicines you are taking, including vitamins, herbs, eye drops, creams, and wtxb-wjq-qbqpshf medicines. ??? Any problems you or family members have had with anesthetic medicines. ??? Any bleeding problems you have. ??? Any surgeries you have had. ??? Any medical conditions you have. ??? Whether you are or may be . What are the risks? Your health care provider will talk with you about risks. These may include: ??? Infection. ??? Bleeding from the kidney. ??? Bruising of the kidney or skin. ??? Scarring of the kidney. This can lead to: ? Increased blood pressure. ? Poor kidney function. ? Return (recurrence) of kidney stones. ??? Damage to other structures or organs. This may include the liver, colon, spleen, or pancreas. ??? Blockage (obstruction) of the tube that carries urine from the kidney to the bladder (ureter). ??? Failure of the kidney stone to break into fragments. What happens before the procedure? When to stop eating and drinking Follow instructions from your health care provider about what you may eat and drink. These may include: ??? 8 hours before your procedure ? Stop eating most foods. Do not eat meat, fried foods, or fatty foods. ? Eat only light foods, such as toast or crackers. ? All liquids are okay except energy drinks and alcohol. ??? 6 hours before your procedure ? Stop eating. ? Drink only clear liquids, such as water, clear fruit juice, black coffee, plain tea, and sports drinks. ? Do not drink energy drinks or alcohol. ??? 2 hours before your procedure ? Stop drinking all liquids. ? You may be allowed to take medicines with small sips of water. If you do not follow your health care provider's instructions, your procedure may be delayed or canceled. Medicines Ask your health care provider about: ??? Changing or stopping your regular medicines. These include any diabetes medicines or blood thinners you take. ??? Taking medicines such as aspirin and ibuprofen. These medicines can thin your blood. Do not take them unless your health care provider tells you to. ??? Taking utml-yzp-jxixtdr medicines, vitamins, herbs, and supplements. Tests You may have tests, such as: ??? Blood tests. ??? Urine tests. ??? Imaging tests. This may include a CT scan. Surgery safety Ask your health care provider: ??? How your surgery site will be marked. ??? What steps will be taken to help prevent infection. These steps may include: ? Washing skin with a soap that kills germs. ? Receiving antibiotics. General instructions ??? If you will be going home right after the procedure, plan to have a responsible adult: ? Take you home from the hospital or clinic. You will not be allowed to drive. ? Care for you for the time you are told. What happens during the procedure? An IV will be inserted into one of your veins. ??? You may be given: ? A sedative. This helps you relax. ? Anesthesia. This will: ? Numb certain areas of your body. ? Make you fall asleep for surgery. ??? A water-filled cushion may be placed behind your kidney or on your abdomen. In some cases, you may be placed in a tub of lukewarm water. ??? Your body will be positioned in a way that makes it easier to target the kidney stone. ??? An X-ray or ultrasound exam will be done to locate your stone. ??? Shock waves will be aimed at the stone. If you are awake, you may feel a tapping sensation as the shock waves pass through your body. ??? A small mesh tube (stent) may be placed in your ureter. This will help keep urine flowing from the kidney if the fragments of the stone have been blocking the ureter. The stent will be removed minerva later time by your health care provider. The procedure may vary among health care providers and hospitals. What happens after the procedure? Your blood pressure, heart rate, breathing rate, and blood oxygen level will be monitored untilyou leave the hospital or clinic. ??? You may have an X-ray after the procedure to see how many of the kidney stones were broken up. This will also show how much of the stone has passed. If there are still large fragments after treatment, you may need to have a second procedure at a later time. This information is not intended to replace advice given to you b (more content not included)...[facility] Evaluation + Plan note Note Date & TypeNoteFacilityEvaluation + Plan note Future Appointments Appointment Date:03/11/2025 10:15:00 AM Scheduled Provider: Location:[facility] Appointment Type:Surgery FT [facility] Evaluation note Note Date & TypeNoteFacilityEvaluation noteNo assessment information available [facility] Work Phone: Hospital course Narrative Note Date & TypeNoteFacilityHospital course Narrative No data available for this section [facility] Progress note Note Date & TypeNoteFacilityProgress note No data available for this section [facility] Reason for referral (narrative) Note Date & TypeNoteFacilityReason for referral (narrative)No reason for referral information availableC[facility] Work Phone: Summary Purpose Family History No Family History Records FoundNo Family History Records Found No data available for this section No Family History Records FoundNo Family History Records FoundNo Family History Records FoundNo Family History Records FoundNo Family History Records FoundNo Family History Records Found Advance Directives No Advanced Directives Records FoundNo Advanced Directives Records FoundNo Advanced Directives Records FoundNo Advanced Directives Records FoundNo Advanced Directives Records FoundNo Advanced Directives Records FoundNo Advanced Directives Records FoundNo Advanced Directives Records Found Additional Source Comments (unrecognized sect ion and content) No Status Records FoundNo Status Records FoundNo Status Records FoundNo Status Records FoundNo Status Records FoundNo Status Records FoundNo Status Records FoundNo Status Records Found INFORMATION SOURCE (unrecogn ized section and content) DATE CREATED AUTHOR 09/20/2022 [facility] DATE CREATED AUTHOR AUTHOR'S ORGANIZ ATION 10/01/2024 [facility] DATE CREATED AUTHOR AUTHOR'S ORGANIZ ATION 03/11/2025 [facility] DATE CREATED AUTHOR AUTHOR'S ORGANIZ ATION 03/12/2025 [facility] DATE CREATED AUTHOR AUTHOR'S ORGANIZ ATION 03/12/2025 [facility] DATE CREATED AUTHOR AUTHOR'S ORGANIZ ATION 03/27/2025 [facility] Care Teams (unrecognized sec tion and content) Team Status: Inactive Member Role Status Dates Beverly De La Torre DO Attending Provider Active S tart: December 29, 2024 End: December 29, 2024 Team Status: Inactive Member Role Status Dates Beverly De La Torre , Attending Provider Active S tart: March 08, 2025 End: March 08, 2025 Goals (unrecognized section and content) Goals may be documented in a n alternate sectionGoals may be documented in an alternate section No data available for this section FOR RECORDS PERTAINING TO PATIENTS WHO ARE [...] BE BASED ON THE PRIMARY CLINICAL RECORDS. [facility] [employer] [facility]. provides no warranty or guarantee of the accuracy or completeness of information in this document.
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
--- OUTSIDE RECORDS SUMMARY | 2025-05-23 13:32 | XMS_ITS | Clinical Summary ---
Author Organization [facility] Address [facility] [id number] [address] [place] [address] Care Team Providers Care Garnett Feeder Name Role Phone No Pcp, No Pcp Primary Care Provider Unavailabl e Social History Tobacco UseTypesPacks/DayYears UsedDateSmoking Tobacco: Never AssessedChildcare AnswerDate SuioczvkVdfgcgsjhYipntlf58/12/2019EmploymentAnswerDate Recorded XzdnvygvazQgbinyy11/12/2019Sex and Gender InformationValueDate RecordedSex Assigned at BirthNot on fileLegal ZmiFvkw1003/03/2015 11:43 AM EDTGender Identity Not on fileSexual OrientationNot on file Plan of Treatment Health MaintenanceDue DateLast DoneCommentsDepression Tctguhqcp04/20/1973Tobacco Gbtgmgtsq38/20/1973Adult BMI Kavgpplij79/20/1979Zoster (Shingles) Vaccine (1 of 2)2011DTaP,Tdap and Td Vaccines (2 - Td or Tdap) Influenza Pbcdpiu4303/29/2025 Medical Devices Not on file Insurance Care Teams Team MemberRelationshipSpecialtyStart DateEnd Date [place], [place] [id number] PCP - [facility]09/29/24
--- NOTE | 2025-05-23 13:40 | ECG_ITS ---
[facility] Test Date: 2025-05-23 Pat Name: BISHNU ROLON Department: Room: - Gender: Male Laboratory Secretary: : 1960 Requested By: [id number] Order Number: [id number] Reading MD: ÓSCAR ALMEIDA M.D. Measurements Intervals [place] Rate: 109 P: 46 ME: 138 QRS: -50 QRSD: 82 T: 38 QT: 324 QTc: 388 Interpretive Statements 1120 Sinus tachycardia 2420 RSR (QR) in lead V1/V2, consistent with right ventricular conduction delay 2630 Left anterior fascicular block 5211 Minimal voltage criteria for LVH, may be normal variant 8003 Consistent with pulmonary disease 9150 abnormal ECG Compared to ECG 12/29/2024 17:22:55 Ventricular premature complex(es) no longer present Electronically Signed On 05-23-2025 16:09:18 EDT by ÓSCAR ALMEIDA M.D.
--- NOTE | 2025-05-23 13:40 | CT_ITS ---
[address] [address] Patient Name: BISHNU ROLON MRN: [id number] date: 1960 Sex: M Assigned Patient Location: ER Current Patient Location: ER Accession/Order Number: [id number] Exam Date: 05/23/2025 14:00 Report Date: 05/23/2025 14:55 At the request of: TATY ROYAL DO Procedure: CT angio abdomen pelvis CTA Chest with PE protocol TECHNIQUE: Axial imaging with 2-D and 3-D reconstruction. The CT exam was performed using one or more the following dose reduction techniques: Automated exposure control, adjustment of the MA and/or Kv according to patient size, or use of the iterative reconstruction technique. History: Pain between shoulder blades. Shortness of breath. Diaphoresis COMPARISON: None THYROID: Unremarkable TRACHEA AND BRONCHI: Patent ESOPHAGUS: Unremarkable. HEART: Within normal limits PERICARDIAL EFFUSION: None CORONARY ARTERY CALCIFICATION: None MEDIASTINUM: No adenopathy. No pneumoperitoneum. No mediastinal hematoma. PULMONARY KORIN: No hilar mass or adenopathy is seen. THORACIC AORTA Unremarkable PULMONARY EMBOLUS: None LUNG NODULE None LUNGS: Lungs are clear PLEURAL EFFUSION: None PNEUMOTHORAX: No pneumothorax seen. CHEST WALL: No abnormality AXILLA: Unremarkable BONY STRUCTURES Intact UPPER ABDOMEN: Images of the upper abdomen are noncontributory. CT/CT angio abdomen pelvis IMPRESSION: No acute pulmonary embolus. No aortic aneurysm or dissection. CT angiogram of the abdomen and pelvis TECHNIQUE: Axial imaging with 2-D reconstruction. The CT exam was performed using one or more the following dose reduction techniques: Automated exposure control, adjustment of the MA and/or Kv according to patient size, or use of the iterative reconstruction technique. COMPARISON: None History: LIMITATIONS: None LOWER THORAX Unremarkable LIVER: Hepatic steatosis. GALLBLADDER: No gallbladder abnormality identified. BILE DUCTS: No dilatation SPLEEN: Unremarkable PANCREAS: Unremarkable ADRENAL GLANDS: Unremarkable KIDNEYS:Small left renal cysts. No hydronephrosis. AORTA: No abdominal aortic aneurysm identified. RETROPERITONEUM: No significant retroperitoneal abnormalities identified. MESENTERY:Unremarkable STOMACH:Unremarkable SMALL BOWEL: The small bowel loops are nondistended. APPENDIX: The appendix is normal. COLON: Diverticulosis. URINARY BLADDER: Urinary bladder is unremarkable. REPRODUCTIVE SYSTEM: Reproductive structures are unremarkable. PNEUMOPERITONEUM: None PERITONEAL FLUID:None BONY STRUCTURES: Unremarkable ABDOMINAL WALL: Unremarkable IMPRESSION: No abdominal aortic aneurysm or dissection. No acute focal inflammatory changes. No bowel obstruction. Hepatic steatosis. Impression dictated by: Madhav Belcher M.D. 05/23/2025 2:55 PM Dictation Location: [facility] Electronically authenticated by: [id number] Y Date: 05/23/2025 14:55
--- NOTE | 2025-05-23 13:40 | CT_ITS ---
[address] [address] Patient Name: BISHNU ROLON MRN: [id number] date: 1960 Sex: M Assigned Patient Location: ER Current Patient Location: ER Accession/Order Number: [id number] Exam Date: 05/23/2025 14:00 Report Date: 05/23/2025 14:55 At the request of: TATY ROYAL DO Procedure: CT angio abdomen pelvis CTA Chest with PE protocol TECHNIQUE: Axial imaging with 2-D and 3-D reconstruction. The CT exam was performed using one or more the following dose reduction techniques: Automated exposure control, adjustment of the MA and/or Kv according to patient size, or use of the iterative reconstruction technique. History: Pain between shoulder blades. Shortness of breath. Diaphoresis COMPARISON: None THYROID: Unremarkable TRACHEA AND BRONCHI: Patent ESOPHAGUS: Unremarkable. HEART: Within normal limits PERICARDIAL EFFUSION: None CORONARY ARTERY CALCIFICATION: None MEDIASTINUM: No adenopathy. No pneumoperitoneum. No mediastinal hematoma. PULMONARY KORIN: No hilar mass or adenopathy is seen. THORACIC AORTA Unremarkable PULMONARY EMBOLUS: None LUNG NODULE None LUNGS: Lungs are clear PLEURAL EFFUSION: None PNEUMOTHORAX: No pneumothorax seen. CHEST WALL: No abnormality AXILLA: Unremarkable BONY STRUCTURES Intact UPPER ABDOMEN: Images of the upper abdomen are noncontributory. CT/CT angio chest IMPRESSION: No acute pulmonary embolus. No aortic aneurysm or dissection. CT angiogram of the abdomen and pelvis TECHNIQUE: Axial imaging with 2-D reconstruction. The CT exam was performed using one or more the following dose reduction techniques: Automated exposure control, adjustment of the MA and/or Kv according to patient size, or use of the iterative reconstruction technique. COMPARISON: None History: LIMITATIONS: None LOWER THORAX Unremarkable LIVER: Hepatic steatosis. GALLBLADDER: No gallbladder abnormality identified. BILE DUCTS: No dilatation SPLEEN: Unremarkable PANCREAS: Unremarkable ADRENAL GLANDS: Unremarkable KIDNEYS:Small left renal cysts. No hydronephrosis. AORTA: No abdominal aortic aneurysm identified. RETROPERITONEUM: No significant retroperitoneal abnormalities identified. MESENTERY:Unremarkable STOMACH:Unremarkable SMALL BOWEL: The small bowel loops are nondistended. APPENDIX: The appendix is normal. COLON: Diverticulosis. URINARY BLADDER: Urinary bladder is unremarkable. REPRODUCTIVE SYSTEM: Reproductive structures are unremarkable. PNEUMOPERITONEUM: None PERITONEAL FLUID:None BONY STRUCTURES: Unremarkable ABDOMINAL WALL: Unremarkable IMPRESSION: No abdominal aortic aneurysm or dissection. No acute focal inflammatory changes. No bowel obstruction. Hepatic steatosis. Impression dictated by: Madhav Belcher M.D. 05/23/2025 2:55 PM Dictation Location: [facility]ITAL[facility] Electronically authenticated by: [id number] Y Date: 05/23/2025 14:55
[2025-05-23] MEDS: 0.9 % SODIUM CHLORIDE 1,000 ML 1000 ML IV (13:43)
[2025-05-23 13:57] LABS: Hematocrit 40.7 % (42.0-54.0); Hemoglobin 13.5 g/dL (14.0-18.0); Immature Granulocytes Abs Auto 0.02 10^3/uL (0.00-0.03); Immature Granulocytes Pct Auto 0.2 % (0.0-0.5); Lymphocytes Absolute Auto 1.8 10^3/uL (1.2-3.8); Mean Corpuscular HGB Conc 33.2 g/dL (29.9-35.2); Mean Corpuscular Hemoglobin 27.9 pg (25.9-34.0); Mean Corpuscular Volume 84.1 fL (80.0-94.0); Platelet Count 276 10^3/uL (150-450); Red Blood Count 4.84 10^6/uL (4.70-6.10); White Blood Count 9.5 10^3/uL (4.0-11.0)
[2025-05-23 14:11] LABS: INR 1.08; Partial Thromboplastin Time 26.9 sec (22.3-36.2); Prothrombin Time 11.4 sec (9.0-11.6)
[2025-05-23 14:36] LABS: Alanine Aminotransferase 21 U/L (16-63); Albumin Globulin Ratio 1.0; Albumin Level 3.9 g/dL (3.4-5.0); Alkaline Phosphatase 91 U/L (46-116); Anion Gap 15.2; Aspartate Amino Transferase 15 U/L (15-37); Blood Urea Nitrogen 38.0 mg/dL (7.0-18.0); Calcium 9.1 mg/dL (8.5-10.1); Carbon Dioxide 29.7 mmol/L (21.0-32.0); Chloride 102 mmol/L (98-107); Estimated GFR (African America 40 (>=60 mL/min/1.73m^2); Estimated GFR (Non-African Ame 33 (>=60 mL/min/1.73m^2); Globulin 4.1 g/dL; Glucose 128 mg/dL (74-106); Potassium 3.9 mmol/L (3.5-5.1); Sodium 143 mmol/L (136-145); Total Protein 8.0 g/dL (6.4-8.2)
--- NOTE | 2025-05-23 14:36 | ECG_ITS ---
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 Measurements Intervals [place] Rate: 93 P: 49 MD: 130 QRS: -45 QRSD: 94 T: 7 QT: 346 QTc: 397 Interpretive Statements 1100 Sinus rhythm 2630 Left anterior fascicular block 4068 Nonspecific Twave abnormality 5222 Moderate voltage criteria for LVH, may be normal variant 8003 Consistent with pulmonary disease 8102 Low QRS voltage in chest leads 9150 abnormal ECG Compared to ECG 05/23/2025 13:35:51 Low QRS voltage now present Sinus tachycardia no longer present Electronically Signed On 05-23-2025 16:09:36 EDT by ÓSCAR ALMEIDA M.D.
[2025-05-23 14:41] LABS: NT Pro B Type Natriuretic Pept 15.0 pg/mL (<=900.0)
--- NOTE | 2025-05-23 15:31 | ED_ITS ---
HPI HPI - General Adult General Chief complaint: Shortness of Breath/Dyspnea Stated complaint: BACK PAIN WEAKNESS SOB Time Seen by Provider: 05/23/25 13:28 Source: patient Mode of arrival: Wheelchair History of Present Illness HPI narrative: Patient is a 65-year-old male, history significant only for hypertension, presenting to the emergency department for evaluation of back pain. Patient states that 25 minutes prior to arrival he was eating breakfast when he had sudden onset pain in the center of his upper back. He states it felt heavy in nature, radiated down his arms. He also felt diaphoretic. He had no nausea or vomiting. He denied any chest pain or shortness of breath. He has never had symptoms like this in the past. He denies history of TN or previous cardiac surgeries. He denies history of DVT/PE. He does mention his blood pressure medications have been recently increased. His PCP just increased his dose of HCTZ and started him on Lisinopril 40mg just a few weeks ago. Related Data Home Medications ?Medication ?Instructions ?Recorded ?Confirmed lisinopril 40 mg tablet 40 mg PO .QD 12/29/24 hydrochlorothiazide 25 mg tablet mg 05/23/25 Allergies Allergy/AdvReac Type Severity Reaction Status Date / Time No Known Drug Allergies Allergy Verified 12/29/24 17:17 Opioid HPI Opioid Management Most Recent Opioid Data: Last Pain Scale 10 Today, 13:34 Last ORT Total Score 0 12/29/24, 21:33 Last ORT Risk Category Low Risk 12/29/24, 21:33 Review of Systems ROS Status of ROS 10 or more systems reviewed and unremark able except as noted in history and below [facility] Medical History (Updated 05/23/25 @ 15:35 by Figueroa Puente DO) Kidney stone ?N20.0 - Calculus of kidney (ICD-10) Acute kidney injury ?N17.9 - Acute kidney failure, unspecified (ICD-10) Acute UTI (urinary tract infection) ?N39.0 - Urinary tract infection, site not specified (ICD-10) Chest pain ?R07.9 - Chest pain, unspecified (ICD-10) Hypertension ?I10 - Essential (primary) hypertension (ICD-10) Social History (Updated 12/29/24 @ 21:57 by Carlota Rodríguez RN) Within the past year, how often did you have a drink containing alcohol: never Within the past year, how often did you have six or more drinks on one occasion: never Score interpretation: A score less than 4 is consistent with normal alcohol consumption. Smoking status: Never smoker Second hand tobacco smoke exposure: No Non-prescribed substance use: denies use Known occupational exposures/hazards: No Highest level of school completed/degree received: high school graduate Do you want help with school or training: No Are you now , , , , never or living with a partner: In a typical week, how many times do you talk on the telephone with family, friends, or neighbors: 3 or more times per week Little interest or pleasure in doing things: not at all Feeling down, depressed, or hopeless: not at all Feel stressed/tense/nervous/anxious/difficulty sleeping: not at all Exam Narrative Exam Narrative: CONSTITUTIONAL: Patient appears diaphoretic generally pale/unwell, he is mentating appropriately, answering questions and following commands appropriately SKIN: No rashes.. EYES: No scleral icterus. EARS, NOSE, THROAT: No JVD. Moist oral mucosa. RESPIRATORY: Clear to auscultation bilaterally, no wheezes, crackles, or stridor, no use of accessory muscles CARDIOVASCULAR: Normal rate and regular rhythm. There is no S3, S4, murmur, rub. Radial and dorsalis pedis pulses are 2+ and symmetrical. GASTROINTESTINAL: Abdomen was soft, non-tender, and non-distended. There is no guarding or rebound tenderness MUSCULOSKELETAL: There was no lower extremity edema, erythema, or tenderness. NEUROLOGIC: Patient is awake and alert. Equal strength in all extremities. Facies were symmetrical. Constitutional Vital Signs, click to edit/add: Last Vital Signs Pulse 93 H 05/23/25 14:30 Resp 20 05/23/25 14:30 BP 112/60 05/23/25 14:30 Pulse Ox 97 05/23/25 14:20 O2 Del Method Room Air 05/23/25 13:34 Course Vital Signs Vital signs: Vital Signs Pulse Oximetry 100 05/23/25 13:33 Pulse Rate 93 H 05/23/25 14:30 Respiratory Rate 20 05/23/25 14:30 Blood Pressure 112/60 05/23/25 14:30 Pulse Oximetry 97 05/23/25 14:20 Oxygen Delivery Method Room Air 05/23/25 13:34 Medical Decision Making MDM Narrative Medical decision making narrative: Patient is a 65-year-old male, history only significant for hypertension, presenting to the emergency department for acute onset back pain and diaphoresis beginning 25 minutes prior to arrival. His vital signs were significant for hypotension to 89/64 and tachycardia to 112 bpm. He is saturating 97% percent on room air with clear breath sounds. Differential diagnosis includes aortic dissection, pulmonary embolism, ACS, pneumothorax, esophageal rupture, or other electrolyte/metabolic derangement. I V was established and laboratory studies were obtained. He was taken emergently to CT scanner to obtain angiography of the chest/abdomen/pelvis. He was given 1 L bolus of normal saline. 12 Lead EKG @ 13:35: Sinus tachycardia at a rate of 109. Left anterior fascicular block. No ST segment elevations. QRS, MO, and QTc interval within normal limits. Final impression: Sinus tachycardia without evidence of acute myocardial ischemia Repeat 12 Lead EKG @14:37: Normal sinus rhythm at a rate of 93. Left anterior fascicular block. No ST segment elevations. QRS, MO, and QTc interval within normal limits. Unchanged compared to prior EKG from 1 hour ago. Final impression: normal sinus rhythm without evidence of dynamic changes or acute myocardial ischemia CT angiography of the chest/abdomen/pelvis was unremarkable and revealed no acute findings. There is no evidence of aortic dissection or PE. Laboratory studies were unremarkable. No significant electrolyte or metabolic derangement. He does have a mild acute kidney injury, however this may be secondary to recent initiation of lisinopril 3 weeks ago. Also may be be secondary to dehydration/transient hypotension. No anemia, leukocytosis, or thrombocytopenia. No transaminitis or hyperbilirubinemia. Initial and repeat 3-hour troponin were negative. BNP negative. Repeat BMP after 1L of IV fluids demonstrated improvement of his creatinine from 2.04 to 1.83. On reevaluation, patient states his symptoms have completely improved. He is well-appearing and ambulating around the emergency department without issues. His vital signs have normalized - blood pressure is now 112/60 with a heart rate of 93. On further discussion with the patient, he states that ever since the increase in his blood pressure medications a few weeks ago, he has been feeling generally lethargic and has been getting tired easily. He he is pretty sure he is on too high of a dose of HCTZ. This likely explains his symptoms and transient, fluid-responsive hypotension. He states he takes his blood pressure regularly at home, and his systolic consistently runs around 100 mmHg. I did recommend he cut his HCTZ dose in half from 50 mg to 25 mg until he can follow-up with his PCP. I do believe the patient is stable for discharge. Patient's HEART Score is 3 (age, 1 risk factor, moderately suspicious history) - putting him in the low risk category for MACE. They were instructed to follow up with his PCP for further care. Return precautions were given including any new or worsening symptoms. Patient understands and agrees to the plan. FINAL IMPRESSION: #Acute transient hypotension, likely adverse medication side effect #Acute MAIRA, improving #Acute back pain, resolved DISPOSITION: Discharged home CONDITION: Good Lab Data Lab results reviewed: Yes I reviewed the patient's lab results Labs: Lab Results 05/23/25 05/23/25 Range/Units 13:40 15:15 WBC 9.5 (4.0-11.0) 10^3/uL RBC 4.84 (4.70-6.10) 10^6/uL Hgb 13.5 L (14.0-18.0) g/dL Hct 40.7 L (42.0-54.0) % MCV 84.1 (80.0-94.0) fL MCH 27.9 (25.9-34.0) pg MCHC 33.2 (29.9-35.2) g/dL RDW 13.5 (11.0-15.0) % Plt Count 276 (150-450) 10^3/uL MPV 11.8 (9.5-13.5) fL Neut % (Auto) 74.7 (43.0-75.0) % Lymph % (Auto) 18.8 L (20.5-60.0) % Gage % (Auto) 5.1 (1.7-12.0) % Eos % (Auto) 0.8 L (0.9-7.0) % Baso % (Auto) 0.4 (0.2-2.0) % Neut # (Auto) 7.1 H (1.4-6.5) 10^3/uL Lymph # (Auto) 1.8 (1.2-3.8) 10^3/uL Gage # (Auto) 0.5 (0.3-0.8) 10^3/uL Eos # (Auto) 0.1 (0.0-0.7) 10^3/uL Baso # (Auto) 0.0 (0.0-0.1) 10^3/uL Abs Immat Gran (auto) 0.02 (0.00-0.03) 10^3/uL Imm/Tot Granulo (auto) 0.2 (0.0-0.5) % PT 11.4 (9.0-11.6) sec INR 1.08 APTT 26.9 (22.3-36.2) sec Sodium 143 142 (136-145) mmol/L Potassium 3.9 3.8 (3.5-5.1) mmol/L Chloride 102 104 (98-107) mmol/L Carbon Dioxide 29.7 30.3 (21.0-32.0) mmol/L Anion Gap 15.2 11.5 BUN 38.0 H 37.0 H (7.0-18.0) mg/dL Creatinine 2.04 H 1.83 H (0.70-1.30) mg/dL Est GFR ( Amer) 40 L 45 L (>=60 mL/min/1.73m^2) Est GFR (Non-Af Amer) 33 L 37 L (>=60 mL/min/1.73m^2) BUN/Creatinine Ratio 18.6 20.2 Glucose 128 H 98 (74-106) mg/dL Calcium 9.1 8.4 L (8.5-10.1) mg/dL Total Bilirubin 0.6 (0.2-1.0) mg/dL AST 15 (15-37) U/L ALT 21 (16-63) U/L Alkaline Phosphatase 91 (46-116) U/L Troponin I High Sens 6.5 9.3 (4.0-76.1) pg/mL NT-Pro-B Natriuret Pep 15.0 (<=900.0) pg/mL Total Protein 8.0 (6.4-8.2) g/dL Albumin 3.9 (3.4-5.0) g/dL Globulin 4.1 g/dL Albumin/Globulin Ratio 1.0 Blood Type B Positive Antibody Screen Negative Imaging Data CT scan - chest: Attestation: I personally reviewed and interpreted this imaging study as follows: Radiologist's impression: ITS Impressions Abdomen/Pelvis CTA 05/23/25 13:40 IMPRESSION: No acute pulmonary embolus. No aortic aneurysm or dissection. CT angiogram of the abdomen and pelvis TECHNIQUE: Axial imaging with 2-D reconstruction. The CT exam was performed using one or more the following dose reduction techniques: Automated exposure control, adjustment of the MA and/or Kv according to patient size, or use of the iterative reconstruction technique. COMPARISON: None History: LIMITATIONS: None LOWER THORAX Unremarkable LIVER: Hepatic steatosis. GALLBLADDER: No gallbladder abnormality identified. BILE DUCTS: No dilatation SPLEEN: Unremarkable PANCREAS: Unremarkable ADRENAL GLANDS: Unremarkable KIDNEYS:Small left renal cysts. No hydronephrosis. AORTA: No abdominal aortic aneurysm identified. RETROPERITONEUM: No significant retroperitoneal abnormalities identified. MESENTERY:Unremarkable STOMACH:Unremarkable SMALL BOWEL: The small bowel loops are nondistended. APPENDIX: The appendix is normal. COLON: Diverticulosis. URINARY BLADDER: Urinary bladder is unremarkable. REPRODUCTIVE SYSTEM: Reproductive structures are unremarkable. PNEUMOPERITONEUM: None PERITONEAL FLUID:None BONY STRUCTURES: Unremarkable ABDOMINAL WALL: Unremarkable IMPRESSION: No abdominal aortic aneurysm or dissection. No acute focal inflammatory changes. No bowel obstruction. Hepatic steatosis. Impression dictated by: Madhav Belcher M.D. 05/23/2025 2:55 PM Dictation Location: [place] [address] Electronically authenticated by: [id number] Y Date: 05/23/2025 14:55 Chest CTA 05/23/25 13:40 IMPRESSION: No acute pulmonary embolus. No aortic aneurysm or dissection. CT angiogram of the abdomen and pelvis TECHNIQUE: Axial imaging with 2-D reconstruction. The CT exam was performed using one or more the following dose reduction techniques: Automated exposure control, adjustment of the MA and/or Kv according to patient size, or use of the iterative reconstruction technique. COMPARISON: None History: LIMITATIONS: None LOWER THORAX Unremarkable LIVER: Hepatic steatosis. GALLBLADDER: No gallbladder abnormality identified. BILE DUCTS: No dilatation SPLEEN: Unremarkable PANCREAS: Unremarkable ADRENAL GLANDS: Unremarkable KIDNEYS:Small left renal cysts. No hydronephrosis. AORTA: No abdominal aortic aneurysm identified. RETROPERITONEUM: No significant retroperitoneal abnormalities identified. MESENTERY:Unremarkable STOMACH:Unremarkable SMALL BOWEL: The small bowel loops are nondistended. APPENDIX: The appendix is normal. COLON: Diverticulosis. URINARY BLADDER: Urinary bladder is unremarkable. REPRODUCTIVE SYSTEM: Reproductive structures are unremarkable. PNEUMOPERITONEUM: None PERITONEAL FLUID:None BONY STRUCTURES: Unremarkable ABDOMINAL WALL: Unremarkable IMPRESSION: No abdominal aortic aneurysm or dissection. No acute focal inflammatory changes. No bowel obstruction. Hepatic steatosis. Impression dictated by: Madhav Belcher M.D. 05/23/2025 2:55 PM Dictation Location: [employer] Electronically authenticated by: [id number] Y Date: 05/23/2025 14:55 ECG Data Attestation: I personally reviewed and interpreted this ECG as follows: Discharge Plan Discharge Chief Complaint: Shortness of Breath/Dyspnea Clinical Impression: Hypotension due to medication Patient Disposition: Home, Self-Care Time of Disposition Decision: 16:04 Condition: Good Mode of Transportation: Private Vehicle Prescriptions / Home Meds: No Action lisinopril 40 mg tablet 40 mg PO .QD hydrochlorothiazide 25 mg tablet Print Language: Georgian Instructions: Hypotension (ED) Referrals: [facility] [Primary Care Provider, Unknown] - 1 week
[2025-05-23 15:52] LABS: Anion Gap 11.5; Blood Urea Nitrogen 37.0 mg/dL (7.0-18.0); Calcium 8.4 mg/dL (8.5-10.1); Carbon Dioxide 30.3 mmol/L (21.0-32.0); Chloride 104 mmol/L (98-107); Estimated GFR (African America 45 (>=60 mL/min/1.73m^2); Estimated GFR (Non-African Ame 37 (>=60 mL/min/1.73m^2); Glucose 98 mg/dL (74-106); Potassium 3.8 mmol/L (3.5-5.1); Sodium 142 mmol/L (136-145)
== END 2025-05-23 16:12 | disposition home or self-care (01) ==
PROVIDERS: Emergency Provider Student in an Organized Health Care Education/Training Program
DX: I95.89 Other hypotension (principal); T50.995A Adverse effect of other drugs, medicaments and biological substances, initial encounter; I10 Essential (primary) hypertension; Z79.899 Other long term (current) drug therapy
CPT/HCPCS: 36415; 71275; 74174; 80048; 80053; 83880; 84484; 85025; 85610; 85730; 86850; 86900; 86901; 93005; 99285; Q9967

== ENCOUNTER 2025-07-19 21:07 | Emergency (ER) | payer OTHER, SELFPAY ==
--- OUTSIDE RECORDS SUMMARY | 2024-07-13 03:15 | XMS_ITS ---
Author Organization [facility] vices Address [address] [place] [id number] Care Team Providers Care Coke Inspector Name Role Phone Ronaldo Milanyssa Primary Care Provider Keli Lawrence REASON FOR VISIT HTN and GOUT Social History Sex Assigned At : Social History Observation Description Sex Assigned At Male Encounters Encounter Location Date Provider Diagnosis Main [address] [place], [place] [id number] 07/13/2024 Keli Lawrence Plan Of Treatment Next Appt Details Provider Name:Anastasia Milan , 07/26/2025 07:15:00 AM, [address] [place], [place], [id number], Provider Name:Anastasia Milan , 08/30/2025 07:15:00 AM, [address] [place], [place], [phone], Progress Notes * KURTJose URENADOB:1959 (65 yo M)Acc No.[id number]:07/13/2024 Medical Note Patient: Jose Momin :?Keli Lawrence NP-CDOB:1960???Age:64 Y ???Sex:MaleDate:4Phone:[phone]:[address], [place], [id number]:Anastasia Milan Subjective: * Chief Complaints: * H TN and GOUT Billing Information: * Procedure Codes: * Electronic signature of APPLE Anderson on 07/19/2025 at 09:43 PM EST Sign off status: Pending * Provider: APPLE Whittington Date: 09/13/2023 Generated for Printing/Faxing/eTransmitting on:?07/19/2025 09:43 PM EST
[2025-07-19 21:14] VITALS: BP 153/66; PULSE 61; TEMP 36.7; O2SAT 97; BMI 30.4
--- NOTE | 2025-07-19 21:20 | PC.NURSE ---
Pt states he was having a bowel movement and went to urinate He states he felt like he was peeing and it just took a long time to finish When he stood he realized he had not peed A few hours later patient states he tried again to pee and had the sensation that he was urinating for several minutes but nothing came out Pt looked at this penis and states he noticed something stuck in the tip of his urethra Pt states he has a hx of stones and did have a bad pain on Saturday similar to kidney stone pain in the past but the pain passed quickly Pt denies sticking any foreign bodies into his penis
--- NOTE | 2025-07-19 21:42 | ED_ITS ---
HPI - Male Genitourinary General Chief complaint: Urogenital-Male Stated complaint: Urinary retention Time Seen by Provider: 07/19/25 21:24 Source: patient and family () Mode of arrival: walk-in Limitations: no limitations History of Present Illness HPI Narrative: 65-year-old male presents to the emergency department with with complaint of difficulty in urinating. States he has not been able to urinate since yesterday. He also notes something in his urethra at the end of his penis. Has yellow color to it. There is associated discomfort. Does have history of kidney stones. Reports he did have flank pain on Saturday. Quality:?as above Severity:?moderate Timing:?as above, constant Context: Normal setting and activity? Modifying factors:?pain worse with palpation Associated symptoms: as above Related Data Home Medications ?Medication ?Instructions ?Recorded ?Confirmed lisinopril 40 mg tablet 40 mg PO .QD 12/29/24 Previous Rx's ?Medication ?Instructions ?Recorded cephalexin 500 mg capsule 500 mg PO TID 7 days #21 cap s 07/19/25 ketorolac 10 mg tablet 10 mg PO Q8H PRN pain 3 days #10 07/19/25 tabs Allergies Allergy/AdvReac Type Severity Reaction Status Date / Time No Known Drug Allergies Allergy Verified 07/19/25 21:18 Review of Systems ROS Narrative CONST: Denies any fever, chills RESP: Denies any shortness of breath CV: Denies any chest pain GI: +abd pain.? Denies nausea, vomiting. : + difficulty urinating, + penile pain. Denies any flank pain, dysuria MS: Denies any back pain, myalgias SKIN: Denies any color change, rash NEURO: Denies numbness, weakness PSYCHIATRIC: Denies confusion, agitation PFSH PFS Medical History (Updated 07/19/25 @ 22:53 by MAGDALENA Grant) Kidney stone ?N20.0 - Calculus of kidney (ICD-10) Acute kidney injury ?N17.9 - Acute kidney failure, unspecified (ICD-10) Acute UTI (urinary tract infection) ?N39.0 - Urinary tract infection, site not specified (ICD-10) Chest pain ?R07.9 - Chest pain, unspecified (ICD-10) Hypertension ?I10 - Essential (primary) hypertension (ICD-10) Social History (Updated 12/29/24 @ 21:57 by Carlota Rodríguez RN) Within the past year, how often did you have a drink containing alcohol: never Within the past year, how often did you have six or more drinks on one occasion: never Score interpretation: A score less than 4 is consistent with normal alcohol consumption. Smoking status: Never smoker Second hand tobacco smoke exposure: No Non-prescribed substance use: denies use Known occupational exposures/hazards: No Highest level of school completed/degree received: high school graduate Do you want help with school or training: No Are you now , , , , never or living with a partner: In a typical week, how many times do you talk on the telephone with family, friends, or neighbors: 3 or more times per week Little interest or pleasure in doing things: not at all Feeling down, depressed, or hopeless: not at all Feel stressed/tense/nervous/anxious/difficulty sleeping: not at all Exam Narrative Exam Narrative: Vital signs reviewed Nurses notes noted CONST: Nontoxic, uncomfortable appearing, well nourished. No diaphoresis.?? HENT: normocephalic, atraumatic CV: normal rate, regular rhythm, no murmur RESP: normal effort, speaking in complete sentences. Lung sounds clear and equal bilat.? No wheezes, rales, rhonchi GI: soft, no distension, nontender : Exam performed under direct supervision of nursing staff. Patient has notable yellowish object in urethra of penis. Penis notable for hypospadias. MS: no edema, tenderness SKIN: no pallor NEURO: A&Ox 3, no focal findings PSYCH: normal mood, affect Constitutional Vital Signs, click to edit/add: Last Vital Signs Temp 98.1 F 07/19/25 21:14 Pulse 61 07/19/25 21:14 Resp 18 07/19/25 21:14 BP 153/66 H 07/19/25 21:14 Pulse Ox 97 07/19/25 21:14 Course Reevaluation(s) Reevaluation #1: Feeling much better after stone was removed from his urethra. Able to urinate. Time: 22:46 Vital Signs Vital signs: Vital Signs Temperature 98.1 F 07/19/25 21:14 Pulse Rate 61 07/19/25 21:14 Respiratory Rate 18 07/19/25 21:14 Blood Pressure 153/66 H 07/19/25 21:14 Pulse Oximetry 97 07/19/25 21:14 Temperature 98.1 F 07/19/25 21:14 Pulse Rate 61 07/19/25 21:14 Respiratory Rate 18 07/19/25 21:14 Blood Pressure 153/66 H 07/19/25 21:14 Pulse Oximetry 97 07/19/25 21:14 MDM - Male Genitourinary MDM Narrative Medical decision making narrative: This is a pleasant 65-year-old male who presents to the emergency department for evaluation of difficulty urinating On arrival, afebrile, vitals stable Exam, nontoxic, uncomfortable-appearing patient in no distress. He has yellow object in his urethra consistent with uric acid kidney stone. He has notable hypospadia. Patient was given dose of Dilaudid, as well as, ear gel. We were able to successfully remove the stone from the urethra. Stone is irregular in shape, measuring approximately 2.5 cm in length. Patient had relief after procedure and was able to urinate. Favor urethral obstruction secondary to kidney stone BPH less likely as he was able to urinate after the stone was removed History and Record Review Discussion with independent historian: Diagnostic testing considered but not performed:CT due to ability to visualize stone Re-Evaluation See ED course Disposition ? The patient was discharged. Plan: Patient will be discharged to home.? Condition at time of disposition: stable, improved.? Advised to follow up with primary provider. Advised to return for any worsening and/or development of new, concerning signs or symptoms PLEASE NOTE: Portions of the medical record may have been produced using electronic ream cutter and may contain errors with respect to translation of words which may not have been identified prior to finalization of the chart. Discharge Plan Discharge Chief Complaint: Urogenital-Male Clinical Impression: Acute urethral obstruction, Kidney stone Patient Disposition: Home, Self-Care Time of Disposition Decision: 22:53 Condition: Good Mode of Transportation: Private Vehicle Prescriptions / Home Meds: New cephalexin 500 mg capsule 500 mg PO TID 7 Days Qty: 21 0RF ketorolac 10 mg tablet 10 mg PO Q8H PRN (Reason: pain) 3 Days Qty: 10 0RF No Action lisinopril 40 mg tablet 40 mg PO .QD Print Language: Armenian Instructions: Kidney Stones (ED) Additional Instructions: Urethral Stone Discharge Instructions You were treated in the emergency department today for a kidney stone that was found in your urethra (the tube that carries urine from your bladder out of your body). This is a rare location for a stone. Here's what you need to know: Pain Management - Take ibuprofen or naproxen (anti-inflammatory medications) as your first choice for pain control[1] https://pubmed.ncbi.nlm.nih.gov/96187986 [2] https://pubmed.ncbi.nlm.nih.gov/96463590 - You may also use acetaminophen (Tylenol) for pain relief[3] https://[employer].com/journals/jamapediatrics/fullarticle/10.1001/jamapediatri cs.141?utm_source=openevidence&utm_medium=referral - If prescribed, take pain medications (opioids) only if the above medications don't control your pain - Combination therapy with more than one type of pain medication works better than using just one[3] https://[employer]com/journals/jamapediatrics/fullarticle/10.1001/jamapediatri cs.2014.141?utm_source=openevidence&utm_medium=referral What to Expect - Small stones (less than 5 mm) usually pass on their own[4] https://www.nejm.org/doi/full/10.1056/IEXOtf8182214 - Stones between 5-10 mm may or may not pass without help[4] https://www.nejm.org/doi/full/10.1056/LHJPsx5695529 - Stones larger than 10 mm typically need a procedure to remove them[4] https://www.nejm.org/doi/full/10.1056/LRZJac8076869 - You may see blood in your urine - this is normal - You may have pain when urinating Straining Your Urine - Use the urine strainer provided every time you urinate - If you catch the stone, save it and bring it to your follow-up appointment - This helps your doctor determine what type of stone you have Hydration - Drink plenty of fluids to help flush out the stone - Aim for enough water to make your urine light yellow or clear - Try to drink more than 2.5 liters (about 10 cups) of fluid daily[5] https://pubmed.ncbi.nlm.nih.gov/85190995 Medications to Help Pass the Stone - If prescribed tamsulosin (Flomax), take it as directed - This medication relaxes the muscles in your urinary tract and may help larger stones pass[1] https://pubmed.ncbi.nlm.nih.gov/64046272 [3] https://jamanetwork.com/journals/jamapediatrics/fullarticle/101001/jamapediatri cs?utm_source=openevidence&utm_medium=referral - Note: This medication is most helpful for stones in the ureter, not the urethra Diet Changes - Reduce salt in your diet[5] https://pubmed.ncbi.nlm.nih.gov/15671702 - Maintain normal calcium intake - don't avoid calcium[5] https://pubmed.ncbi.nlm.nih.gov/77994195 - Your doctor may recommend other diet changes based on your stone type Follow-Up Care - Schedule a follow-up appointment with a urologist within 1-2 weeks - Imaging may be needed within 14 days to check the stone's position[2] https://pubmed.ncbi.nlm.nih.gov/43267125 - Bring any stone fragments you collect to your appointment When to Return to the Emergency Department Immediately - Fever over 100.4?F (38?C) or chills - Severe pain that doesn't improve with medication - Unable to urinate at all - Nausea and vomiting that prevents you from keeping down fluids or medications - Blood in urine that looks like pure blood Important Notes - Most patients can be managed at home without hospital admission[3] https ://[employer].com/journals/jamapediatrics/fullarticle/10.1001/jamapediatrics.?utm_source=openevidence&utm_medium=referral - A combination of infection and a kidney stone is an emergency - seek immediate care if you develop fever[3] https://j[employer]etwork.com/journals/jamapediatrics/fullarticle/10.1001/jamapediatri cs.2014.1419?utm_source=openevidence&utm_medium=referral - You may need a procedure to remove the stone if it doesn't pass on its own If you have any questions or concerns, contact your doctor or return to the emergency department. References * The Evaluation and Management of Urolithiasis in the ED: A Review of the Literature https://pubmed.ncbi.nlm.nih.gov/84504856 . Emilia M, Prabhu B, Mark Millan. The [place] Journal of Emergency Medicine. 2018;36(4):699-706. doi:10.1016/j.ajem.2018.01.003. * Kidney Stones: Treatment and Prevention https://pubmed.ncbi.nlm.nih.gov/03120591 . Neeraj CHEW, Angle TD. [place]. 2019;99(8):490-496. * Current Trends, Evaluation, and Management of Pediatric Nephrolithiasis https://jamaHaodf.com.[employer]/journals/jamap ediatrics/fullarticle/10.1001/jamapediatrics.2015.1419?utm_source=openevidence &utm_medium=referral . Jorge VIDAL, Mercer JS, Bernard TS. [facility]. 2015;169(10):964-70. doi:10.1001/jamapediatrics.2015.1419. * Calcium Kidney Stones https://www.nejm.org/doi/full/10.1056/UWTHqt9036119 . [facility], [facility]. The [place] Journal of Medicine. 2010;363(10):954-6 3. doi:10.1056/TRPVen9234267. * Urinary Stone Disease: Diagnosis, Medical Therapy, and Surgical Management https://pubmed.ncbi.nlm.nih.gov/46104309 . Fabricio JASSO, Geetha MATA. [facility]. 2018;102(2):265-277. doi:10.1016/j.mcna.2017.10.004. Referrals: [facility] [Primary Care Provider, Unknown] - 1 week Procedures ED FB Foreign Body Removal Foreign Body Removal Time out performed: yes Foreign Body Removal Site: urethra Description of foreign body: other (kidney stone) Sedation/Analgesia: other (dilaudid for analgesia, topical urojet) Technique: manual removal Confirmed by: direct visualization and patient report Complications: none Post-procedure exam: awake, alert
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
--- OUTSIDE RECORDS SUMMARY | 2025-07-19 21:43 | XMS_ITS | Clinical Summary ---
Author Organization basestone tem Address [id number] [address] 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 Name Role Phone No Pcp, No Pcp Primary Care Provider Unavailabl e Social History Tobacco UseTypesPacks/DayYears UsedDateSmoking Tobacco: Never AssessedChildcare AnswerDate DvaaapvyQnqvfmqwgItnadby83/12/2019EmploymentAnswerDate Recorded GjesvowbunDswpdxe86/12/2019Sex and Gender InformationValueDate RecordedSex Assigned at BirthNot on fileLegal SmfQgir3403/03/2015 11:43 AM EDTGender Identity Not on fileSexual OrientationNot on file Plan of Treatment Health MaintenanceDue DateLast DoneCommentsDepression Vnarnhwjg45/20/1973Tobacco Eftjexvik80/20/1973Adult BMI Fyieofpyj69/20/1979Zoster (Shingles) Vaccine (1 of 2)2011DTaP,Tdap and Td Vaccines (2 - Td or Tdap) Influenza Mquuaat4403/29/2025RSV ( or age 60+ yrs) (1 - 1-dose 75+ series) 2036 [employer] Not on file Insurance Care Teams Team MemberRelationshipSpecialtyStart DateEnd Date No P[place] [id number] [facility]
[2025-07-19] MEDS: HYDROMORPHONE HCL 1 MG/ML CARTRIDGE IM (22:07)
[2025-07-19] MEDS: LIDOCAINE 2% JELLY 10 ML UR (22:30)
--- NOTE | 2025-07-19 22:36 | PC.NURSE ---
Pt presents to ER with the inability to urinate since 4pm Pt states he feels like he is peeing but nothing comes out Pt states he can see a yellow something stuck in the tip of his penis Pt has a history of gout and kidney stones Had kidney like pain on Saturday but it passed quickly This nurse accompanied Edy NICHOLS in visualizing what ended up being a stone Edy attempted to remove it and patient was unable to tolerate it Pt given a dose of IV dilaudid urojet applied to penis Stone successfully removed Pt succesfully urinated
[2025-07-19] MEDS: CEPHALEXIN 500 MG CAPSULE PO (23:23)
== END 2025-07-19 23:41 | disposition home or self-care (01) ==
PROVIDERS: Emergency Provider Emergency Medicine
DX: N20.0 Calculus of kidney (principal); N36.8 Other specified disorders of urethra; Z87.442 Personal history of urinary calculi
CPT/HCPCS: 96372; 99284; J1171